=== PATIENT | male | born 1960 | race Caucasian/White ===

== ENCOUNTER → 2016-10-02 | Outpatient (CLI) | payer OTHER ==
[~2016-10-02] MED LIST: ASPI-482 PO; BUPIVACAINE MPF 0.25% 10 ML VIAL. ONE; CARV12.52 PO; CARV40CP PO; CHOL2000 PO; DESV50TA PO; ZOLP12.52 PO; ZOLP12.54 PO; methylPREDNISolone ACETATE 40 MG/ML VIAL. ONE
--- NOTE | 2016-10-03 13:20 | PAIN ---
DATE OF SERVICE: 10/02/2016 PROGRESS NOTE DIAGNOSES: 1. Lumbar spondylosis with lumbar herniated disk and lumbar radiculopathy. 2. Myofascial pain. HISTORY OF PRESENT ILLNESS: The patient is a 56-year-old male who returns for followup status post previous lumbar facet joint injections as well as transforaminal injections in the past. The patient has done well with these, was doing fairly well with his low back pain; however, he was moving some furniture over the past few days and it has increased the pain in his back significantly, more on the right than the left, but present bilaterally without any radicular pain in the lower extremities currently, but in the low back itself, which is much more significant than it was. The patient reports he was lifting some couches and moving things around his home some work done on the floors and tweaked his back and it has been very significantly painful. We tried some prescription strength Motrin without significant improvement as we called this and informed the other day and he presents today with still significant pain in the low back, again right greater than left with aching and sharp, alternating pain. This is rated an 8 on a scale of 10, worse with motion, standing, walking, sitting for prolonged periods, riding the car, bending forward even with lying down. It has awaken him from sleep as well for the last few days. The patient reports no new motor or sensory deficits; however, no new bowel or bladder incontinence or other complaints. The patient's old chart was reviewed as his current medication regimen and updated. Current review of systems updated today as well. PHYSICAL EXAMINATION: VITAL SIGNS: The patient's blood pressure is 135/95, pulse 93, respirations 18, temperature 97.5 degrees Fahrenheit. GENERAL: The patient is awake, alert, oriented, appropriate, very pleasant demeanor. HEENT: Shows normocephalic, atraumatic. Extraocular movements are intact and symmetrical. Oral cavity shows mucous membranes are moist and pink. Dentition is intact. NECK: Shows anterior throat supple without palpable lymphadenopathy noted. Swallow reflex is symmetrical. Neck shows full rotation and motion of the cervical spine without difficulty or tenderness. CHEST: Shows normal on inspection. Breath sounds are clear to auscultation bilaterally. HEART: Shows S1 and S2 clear. No murmurs auscultated. ABDOMEN: Shows soft, nontender, nondistended. No palpable organomegaly is noted. No rebound or guarding demonstrated. BACK: The patient's back shows spine grossly in midline. Lumbar paraspinous musculature shows some moderate tenderness with palpation in the bilateral paraspinous musculature, right and left, mostly in the middle and inferior aspect, much more significantly tender on the right side than the left in the paraspinous distribution with very firm rope-like musculature, very tender, very tight and firm with rope-like consistency without specific radiation, but consistent with trigger point musculature. Again, this is present bilaterally from about the L3 level to the L5-S1 level bilaterally. Some slight tenderness over the posterosuperior iliac spines bilaterally, but no tenderness above the upper lumbar paraspinous muscles or into the lower thoracic distribution. The patient shows good rotation and motion of the lumbar spine, both laterally as well as extension and flexion with some minor pain with extension, but not with flexion. EXTREMITIES: Lower extremities show deep tendon reflexes 2+ in the patellar and tendo calcaneus tendons are 1+. Motor exam is strong with 5/5 dorsiflexion, extension and equal. PLAN: Options were discussed with the patient. We will proceed with trigger point injections of the bilateral lumbar paraspinous musculature in the middle and lower distribution. Risks were again discussed including, but not limited to bleeding, infection, possibility of intravascular injection sequelae, spread of local anesthetic and numbness, side effects of steroid medication and poor results regarding pain control. The patient understands and wished to proceed. The patient will return to clinic in approximately 2 weeks or as necessary. He was given refill prescription for hydrocodone 5 mg, number dispensed 60. DIAGNOSES: 1. Myofascial pain. 2. Lumbar spondylosis with lumbar herniated disk and radiculopathy. PROCEDURE: Trigger point injections, bilateral lumbar paraspinous musculature with sterile prep and drape utilized and using local anesthetic. MEDICATIONS INJECTED: 40 mg total of Depo-Medrol plus 0.25% bupivacaine, 8 mL total with negative aspiration at each level. CONDITION AT DISCHARGE: Stable. The patient tolerated the procedure well, had no complications. MERCY MARTINEZ MD DR: DOMI/mary JOB#: [id number] / [id number]
== END ==
LOC: PNCL 14:40
PROVIDERS: ATTEND Anesthesiology
DX: M51.16 Intervertebral disc disorders with radiculopathy, lumbar region (principal); M47.26 Other spondylosis with radiculopathy, lumbar region
CPT/HCPCS: 20553; J1030; J3490

== ENCOUNTER → 2016-11-08 | Outpatient (CLI) | payer OTHER ==
[~2016-11-08] MED LIST changes: -BUPIVACAINE MPF 0.25% 10 ML VIAL. ONE; -methylPREDNISolone ACETATE 40 MG/ML VIAL. ONE
[2016-11-08 07:29] LABS: BASO % 0 % (0-3); EOS % 1 % (0-3); HEMOGLOBIN 14.3 g/dL (13.0-17.5); LYMPH # 3.6 x10^3/uL (1.0-4.8); LYMPH % 44 % (24-48); MEAN CORPUSCULAR HEMOGLOBIN 30 pg (25-35); MEAN CORPUSCULAR HGB CONC 34 g/dL (31-37); MEAN CORPUSCULAR VOLUME 88 fL (79-100); MONO % 8 % (0-9); NEUT % 47 % (31-73); PLATELET COUNT 170 x10^3/uL (140-400); RED BLOOD COUNT 4.78 x10^6/uL (4.30-5.70); RED CELL DISTRIBUTION WIDTH 13.7 % (11.5-14.5); WHITE BLOOD COUNT 8.2 x10^3/uL (4.0-11.0)
[2016-11-08 07:43] LABS: ALBUMIN 3.9 g/dL (3.4-5.0); ALBUMIN/GLOBULIN RATIO 1.1 (1.0-1.7); CALCIUM 8.9 mg/dL (8.5-10.1); GFR 76.7; TOTAL BILIRUBIN 0.8 mg/dL (0.2-1.0); TOTAL PROTEIN 7.3 g/dL (6.4-8.2)
[2016-11-08 07:45] LABS: CHOLESTEROL/HDL RATIO 4.4
[2016-11-08 11:26] LABS: PROSTATE SPECIFIC AG SCREEN 0.5 ng/mL (0.0-4.0)
== END | disposition home or self-care (01) ==
LOC: LAB 06:47
PROVIDERS: ATTEND Internal Medicine
DX: I10 Essential (primary) hypertension (principal); F32.9 Major depressive disorder, single episode, unspecified
CPT/HCPCS: 36415; 80053; 80061; 82607; 84443; 85027; G0103

== ENCOUNTER → 2017-03-03 | Outpatient (CLI) | payer OTHER ==
[~2017-03-03] MED LIST changes: +HYDR-2758 PO; +IBUP-1027 PO; +VORT5TAB PO
--- NOTE | 2017-03-04 03:07 | PAIN ---
DATE OF SERVICE: 03/03/2017 DIAGNOSES: 1. Cervical radiculopathy with cervical degenerative disk disease. 2. Lumbar spondylosis with lumbar herniated disk and radiculopathy. HISTORY OF PRESENT ILLNESS: The patient is a 57-year-old male who returns for followup status post trigger point injections as well as transforaminal injections in the past and lumbar facet injections. The patient reports that he has been doing fairly well with his low back; however, his chief complaint today is neck and right upper extremity pain. He has had significant pain for several years, but has always been on and off. He was told he had a disk bulge at the C5-C6 level about 20 years ago, but again the pain has always gone away after he rested for a day or so, but at this time, is not going away, has been present for about a month and is radiating from the base of the shoulder into the right arm mostly in the posterior aspect of the triceps into the medial aspect of the forearm into the fifth finger with aching, dull, radiating pain that is sharp and stinging, worse with activity, worse with putting all his weight on his right side, exacerbated with certain positions with his neck and shoulders as well. The patient reports anywhere from a 9 to a 4 on a scale of 10 and is currently a 4 today. The patient reports no new motor or sensory deficits, not been dropping items or have any weakness in upper extremities and no symptoms on the left side. PHYSICAL EXAMINATION: VITAL SIGNS: Today, blood pressure is 124/74, pulse 83, respirations 18, temperature 97.5 degrees Fahrenheit. Height is 70 inches, weighs 229 pounds. GENERAL: The patient is awake, alert, oriented, appropriate, very pleasant demeanor. HEENT: Head shows normocephalic, atraumatic. Extraocular movements are intact and symmetrical. Oral cavity, mucous membranes are moist and pink. Dentition is intact. NECK: Shows anterior throat supple without palpable lymphadenopathy noted. Swallow reflex is symmetrical. CHEST: Shows normal on inspection. Breath sounds are clear to auscultation bilaterally. HEART: Shows S1 and S2 clear. ABDOMEN: Soft, nontender, nondistended. No palpable organomegaly is noted. No rebound or guarding demonstrated. BACK: Shows spine grossly in the midline. Neck shows full rotational motion of cervical spine, both laterally as well as extension and flexion without difficulty. CHEST: Shows breath sounds clear to auscultation bilaterally. Posterior cervical musculature shows some very mild tenderness to palpation along with deep palpation in the inferior aspect of the cervical paraspinous musculature as well as the trapezius musculature on the right, but again only diffusely without radiation. Upper extremities show deep tendon reflexes 2+ in the biceps and triceps tendons. Motor exam is strong with packing checker strength rated at 5/5 as is biceps and triceps flexion with some minor pain reported in the posterior trapezius and the posterior deltoid on the right side as well as the posterior and triceps region of the upper arm and worse actually after motor function, but without any loss of strength on resistance with bicep and tricep flexion bilaterally. Peripheral pulses are 2+ radial distribution. No peripheral edema is noted. No clubbing, no cyanosis. Options were discussed with the patient and the patient's old chart was reviewed as his current medication regimen and updated. Current review of systems updated today as well. PLAN: We will follow ____ conservative course at this time. We will try Medrol Dosepak, also the patient was given hydrocodone 5 mg with instructions and side effects to be aware of with each of medications. If not significantly improved within 1 week, the patient will contact the office and we will order MRI scan of the cervical spine at that time. We will try this first and if not significantly improved, we will move on with MRI. MERCY MARTINEZ MD DR: DOMI/mary JOB#: [id number] / [id number]
== END | disposition home or self-care (01) ==
LOC: PNCL 12:05
PROVIDERS: ATTEND Anesthesiology
DX: M50.10 Cervical disc disorder with radiculopathy, unspecified cervical region (principal); M47.896 Other spondylosis, lumbar region; M51.16 Intervertebral disc disorders with radiculopathy, lumbar region
CPT/HCPCS: 99212

== ENCOUNTER → 2017-03-11 | Outpatient (CLI) | payer OTHER ==
[~2017-03-11] MED LIST changes: +IOHEXOL 180 MG/ML 10 ML VIAL. ONE; +methylPREDNISolone ACETATE 40 MG/ML VIAL. ONE; +methylPREDNISolone ACETATE 80 MG/ML VIAL. ONE
--- NOTE | 2017-03-12 05:27 | PN ---
DATE: 03/11/2017 PROGRESS NOTE FOR PAIN CLINIC: DIAGNOSES: 1. Lumbar spondylosis with lumbar herniated disk with lumbar radiculopathy. 2. Myofascial pain. 3. Cervical radiculopathy with cervical degenerative disk disease. HISTORY OF PRESENT ILLNESS: The patient is a 57-year-old male who returns for followup status post evaluation and Medrol Dosepak, which helped by about 20% overall about 50% initially and then decreasing, ____ was taking it. The patient reports there is still significant pain in the right upper extremity, mostly ____ base of the neck as well as some tingling that intermittent in the arm and hand, worse with driving, using his right upper extremity with any repetitive motions such as riding or carrying items, reaching over his head. The patient reports the pain is worsened 10 on a scale of 10 and least as a 5. The patient reports it is dull and shooting and radiating into the right arm as noted, especially into the fourth and fifth fingers and medial aspect of the arm and posterior deltoid on the right side. The patient reports no new motor or sensory deficits or other complaints. PHYSICAL EXAMINATION: VITAL SIGNS: The patient's blood pressure 129/96, pulse 96, respirations 18, temperature 98.1 degrees Fahrenheit. Height 70 inches, weighs 225 pounds. GENERAL: The patient is awake, alert, oriented, appropriate, very pleasant demeanor. HEENT: Head shows normocephalic, atraumatic. Extraocular movements are intact and symmetrical. Oral cavity shows mucous membranes moist and pink. Dentition is intact. NECK: Shows anterior throat supple without palpable lymphadenopathy noted. Swallow reflex is symmetrical. CHEST: Shows normal on inspection. Breath sounds clear to auscultation bilaterally. HEART: Shows S1 and S2 clear. No murmurs auscultated. ABDOMEN: Soft, nontender, nondistended. No palpable organomegaly is noted. No rebound or guarding demonstrated. BACK: Shows spine grossly midline. Cervical paraspinous musculature is symmetrical with inspection and palpation shows some moderate tenderness bilaterally with palpation, but only diffusely without radiation. EXTREMITIES: Upper extremities show deep tendon reflexes at 2+ in the biceps and triceps tendons. Motor exam is strong with devulcanizer loader strength rated at 5/5 as is biceps and triceps flexion. Options were discussed with the patient and the patient's old chart was reviewed as his current medication regimen updated. Current review of systems updated today as well. We will proceed with a cervical epidural steroid injection today with fluoroscopic guidance. Risks were again discussed including, but not limited to bleeding, infection, possibility of epidural hematoma and subsequent neurologic compromise, dural puncture, headaches, spinal cord and/or nerve damage, side effects of steroid medication and poor results regarding pain control. The patient understands and wishes to proceed. The patient will return to clinic in approximately 2 weeks for followup. He was counseled as to return appointment, activity level and side effects to be aware of. DIAGNOSIS: Cervical radiculopathy with cervical degenerative disk disease. PROCEDURE: Cervical epidural steroid injection in translaminar approach at C6-C7 level using C-arm fluoroscopic guidance under sterile prep and drape and local anesthetic. MEDICATION INJECTED: A total of 120 mg Depo-Medrol plus 5 mL of preservative-free normal saline and 2 mL of Isovue for contrast. CONDITION AT DISCHARGE: Stable. The patient tolerated the procedure well, had no complications. MERCY MARTINEZ MD DR: DOMI/mary JOB#: [id number] / [id number]
== END | disposition home or self-care (01) ==
LOC: PNCL 13:58
PROVIDERS: ATTEND Anesthesiology
DX: M50.123 Cervical disc disorder at C6-C7 level with radiculopathy (principal); M51.16 Intervertebral disc disorders with radiculopathy, lumbar region; M47.26 Other spondylosis with radiculopathy, lumbar region; Z88.2 Allergy status to sulfonamides
CPT/HCPCS: 62321; J1030; J1040

== ENCOUNTER → 2017-03-28 | Outpatient (CLI) | payer OTHER ==
[~2017-03-28] MED LIST changes: -IOHEXOL 180 MG/ML 10 ML VIAL. ONE; -methylPREDNISolone ACETATE 40 MG/ML VIAL. ONE; -methylPREDNISolone ACETATE 80 MG/ML VIAL. ONE
--- NOTE | 2017-03-28 14:33 | RAD ---
EXAM: MRI CERVICAL SPINE WITHOUT CONTRAST. HISTORY: Neck pain and right upper extremity radiculopathy. TECHNIQUE: Magnetic resonance images of the cervical spine were obtained without contrast. COMPARISON: None. 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 There is mild lower cervical levocurvature. No fractures are identified. Degenerative disc disease is moderate from C4 through C7 and mild elsewhere. There is mild osteoarthritis at C1-2. There is no abnormal cord signal. There are multiple small lacunar infarcts within the catrina. At C2-3, there is no stenosis. At C3-4, there is a small posterior disc bulge. Uncovertebral osteoarthritis is mild bilaterally. There is no stenosis. At C4-5, there is a small posterior disc-osteophyte complex. Uncovertebral osteoarthritis is moderate bilaterally. Neural foraminal stenosis is mild bilaterally. At C5-6, there is a moderate posterior disc-osteophyte complex. Uncovertebral osteoarthritis is moderate to severe on the left and moderate on the right. Central canal stenosis is mild to moderate with abutment of the anterior cord. Neural foraminal stenosis is moderate on the left and mild on the right. At C6-7, there is a moderate posterior disc-osteophyte complex. Uncovertebral osteoarthritis is moderate to severe on the right greater than left. Neural foraminal stenosis is moderate on the right and mild on the left. Central canal stenosis is mild. At C7-T1, uncovertebral osteoarthritis is moderate to severe bilaterally. Neural foraminal stenosis is moderate bilaterally. It is also moderate at T1 to on the left greater than right. IMPRESSION: 1. 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 2. Central canal stenosis is moderate at C5-6 and mild at C6-7. 3. 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 Electronically signed by: Isabel Jama MD (03/28/2017 2:30 PM) [id number]
--- NOTE | 2017-03-28 14:40 | RAD ---
EXAM: MRI LUMBAR SPINE WITHOUT CONTRAST. HISTORY: Low back pain with right lower extremity radiculopathy. TECHNIQUE: Magnetic resonance images of the lumbar spine were obtained without contrast. COMPARISON: None. FINDINGS: There is a mild dextrocurvature. There is slight retrolisthesis at L4-5. No fractures are identified. Degenerative disc disease is mild from L2 through L5. The conus is at L1 and appears normal. At L2-3, there is a small posterior disc bulge. There is no stenosis. At L3-4, there is a moderate posterior disc bulge. There is mild abutment of the right L4 nerve root in the lateral recess. At L4-5, there is a moderate posterior disc bulge. There is a small superimposed central and right paracentral protrusion. The right lateral recess is moderately narrowed with mass effect on the right L5 nerve root. Neural foraminal narrowing is mild on the right greater than left. At L5-S1, there is a small posterior disc bulge. There is no stenosis. IMPRESSION: 1. L4-5, a small central and right paracentral protrusion there is a right lateral recess moderately with mass effect on the right L5 nerve root. 2. There is mild abutment of the right L4 nerve root in the lateral recess at L3-4. 3. Mild degenerative disc disease from L2 through L5. Electronically signed by: Isabel Jama MD (03/28/2017 2:37 PM) [id number]
== END | disposition home or self-care (01) ==
LOC: MRI 12:54
PROVIDERS: ATTEND Anesthesiology
DX: M51.36 Other intervertebral disc degeneration, lumbar region (principal); M48.02 Spinal stenosis, cervical region; M50.30 Other cervical disc degeneration, unspecified cervical region; Z88.2 Allergy status to sulfonamides
CPT/HCPCS: 72141; 72148

== ENCOUNTER → 2017-04-01 | Outpatient (CLI) | payer OTHER ==
[~2017-04-01] MED LIST changes: +BUPIVACAINE MPF 0.25% 10 ML VIAL. ONE; +IOHEXOL 180 MG/ML 10 ML VIAL. ONE; +methylPREDNISolone ACETATE 40 MG/ML VIAL. ONE; +methylPREDNISolone ACETATE 80 MG/ML VIAL. ONE
== END | disposition home or self-care (01) ==
LOC: PNCL 08:01
PROVIDERS: ATTEND Anesthesiology
DX: M51.16 Intervertebral disc disorders with radiculopathy, lumbar region (principal); M47.26 Other spondylosis with radiculopathy, lumbar region; Z88.2 Allergy status to sulfonamides
CPT/HCPCS: 64493; 64494; J1030; J1040; J3490

== ENCOUNTER → 2017-04-29 | Outpatient (CLI) | payer OTHER ==
[~2017-04-29] MED LIST changes: -BUPIVACAINE MPF 0.25% 10 ML VIAL. ONE
--- NOTE | 2017-04-29 17:18 | PAIN ---
DATE OF SERVICE: 04/29/2017 PROGRESS NOTE FOR PAIN CLINIC DIAGNOSES: 1. Lumbar spondylosis with lumbar herniated disk and lumbar radiculopathy. 2. Cervical radiculopathy with cervical degenerative disk disease. 3. Myofascial pain. HISTORY OF PRESENT ILLNESS: The patient is a 57-year-old male who returns for followup status post lumbar epidural steroid injections as well as cervical epidural steroid injection x 1 on 03/11 and lumbar facet injections on 04/01/2017. The patient reports his back is doing much better. He is almost completely pain free with this, but the pain in his neck and right shoulder and upper extremity is beginning to return now over the past few weeks. The patient reports it is increasing, it can be as high as a 10 on scale of 10 and is currently a 4 on a scale of 10, his average is an 8 on a scale of 10, radiating in the base of the neck, right shoulder posteriorly into the right posterior arm causing some weakness and fatigability. The patient reports it does not awake him from sleep at night; however, he is sleeping well unless he lays on his right side it does not bother him too much, worse with increased activity, even driving a car with his right hand, repetitive motions, reaching over his shoulder, especially when putting on his shirt, getting dressed ____ the patient reports a sharp, shooting and burning, on and off in intensity, but becoming more persistent over the past few weeks. The patient reports no new motor or sensory deficits, no new bowel or bladder incontinence or other complaints. PHYSICAL EXAMINATION: VITAL SIGNS: The patient's blood pressure is 111/64, pulse 79, respirations 18, temperature is 98.1 degrees Fahrenheit. Height is 70 inches, weight is 220 pounds. GENERAL: The patient is awake, alert, oriented, appropriate, very pleasant demeanor. HEENT: Head shows normocephalic, atraumatic. Extraocular movements are intact, symmetrical. Oral cavity, mucous membranes are moist and pink. Dentition is intact. NECK: Shows anterior throat supple without palpable lymphadenopathy noted. Swallow reflex is symmetrical. CHEST: Shows normal on inspection. Breath sounds are clear to auscultation bilaterally. HEART: Shows S1 and S2 clear. ABDOMEN: Soft, nontender, nondistended. BACK: Shows spine grossly in the midline. Lumbar paraspinous muscle shows some only very mild tenderness with deep palpation in the lower lumbar distribution, more on the right than the left, but without radiation, good rotational motion both laterally as well as extension and flexion. Cervical paraspinous muscle shows some moderate tenderness with palpation, but only diffusely in the inferior aspect of the cervical paraspinous muscles, again worse on the right than the left. Also, some tenderness in the right superior medial and lateral trapezius, but without radiation. EXTREMITIES: Upper extremities show deep tendon reflexes at 2+ in the biceps and triceps tendons. Motor exam is strong with steel shot header operator strength rated at 5/5 as is biceps and triceps flexion. Peripheral pulses are 2+ radial distribution. Options were discussed with the patient. We will proceed with a cervical epidural steroid injection, today is the second in this series with fluoroscopic guidance. Risks were again discussed including, but not limited to bleeding, infection, possibility of epidural hematoma, subsequent neurologic compromise, dural puncture, headaches, spinal cord and/or nerve damage, side effects of steroid medication and poor results regarding pain control. The patient understands and wishes to proceed. The patient will return to clinic in approximately 2 weeks for followup. He was counseled to return appointment, activity level, and side effects to be aware of. DIAGNOSIS: Cervical radiculopathy with cervical degenerative disk disease. PROCEDURE: Cervical epidural steroid injection in translaminar approach at C6-C7 level using C-arm fluoroscopic guidance under sterile prep and drape using local anesthetic. Medication injected is a total of 120 mg of Depo-Medrol plus 5 mL preservative-free normal saline and 2 mL of Isovue for contrast. CONDITION AT DISCHARGE: Stable. The patient tolerated procedure well, had no complications. MERCY MARTINEZ MD DR: DOMI/mary JOB#: [id number] / [id number]
== END | disposition home or self-care (01) ==
LOC: PNCL 11:01
PROVIDERS: ATTEND Anesthesiology
DX: M50.123 Cervical disc disorder at C6-C7 level with radiculopathy (principal); M51.16 Intervertebral disc disorders with radiculopathy, lumbar region; M47.26 Other spondylosis with radiculopathy, lumbar region
CPT/HCPCS: 62321; J1030; J1040

== ENCOUNTER → 2017-05-13 | Outpatient (CLI) | payer OTHER ==
--- NOTE | 2017-05-13 18:24 | PAIN ---
DATE OF SERVICE: 05/13/2017 DIAGNOSES: 1. Lumbar spondylosis with lumbar herniated disk and lumbar radiculopathy. 2. Cervical radiculopathy with cervical degenerative disk disease. 3. Myofascial pain. HISTORY OF PRESENT ILLNESS: The patient is a 57-year-old male who returns for followup status post cervical epidural steroid injection x 2, last seen 04/29/2017. The patient did very well with decreasing pain about 6 hours after the procedure, lasting for about 2 weeks. The pain is in his neck and right upper extremity. The patient reports it is a 10 on a scale of 10 at its worst, it is returning now 6 on a scale of 10, ____ currently is 7 on a scale of 10 which is the average. The patient reports it has been hurting for about 3 or 4 days, increasing with activity, raising his arm over his head on the right side. It does not awaken him from sleep at night, but does hurts and he had to reposition few times. Sometimes it is hard to get to sleep till he finds a right position. The patient reports it is more painful, more now in the shoulder than in the arm aching, sharp, dull and shooting pain. No new motor or sensory deficits or other complaints. PHYSICAL EXAMINATION: VITAL SIGNS: Shows blood pressure 121/73, pulse 91, respirations 18, temperature is 97.9 degrees Fahrenheit. Height is 70 inches, weight is 217 pounds. GENERAL: The patient is awake, alert, oriented, appropriate, very pleasant demeanor. HEENT: Shows normocephalic, atraumatic. Extraocular movements are intact and symmetrical. Oral cavity shows mucous membranes moist and pink. Dentition is intact. NECK: Shows anterior throat supple without palpable lymphadenopathy noted. Swallow reflex is symmetrical. CHEST: Shows normal on inspection. Breath sounds clear to auscultation bilaterally. HEART: Shows S1 and S2 clear. No murmurs auscultated. ABDOMEN: Soft, nontender, nondistended. BACK: Shows spine grossly midline. Cervical paraspinous muscle shows some moderate tenderness with palpation, but symmetrical in the musculature itself only with palpation, more in the inferior aspect of the cervical paraspinous muscles and superior medial trapezius, essentially equal but tender bilaterally. EXTREMITIES: Upper extremities showed deep tendon reflexes at 2+ in the biceps and triceps tendons. Motor exam is strong with certified activities director strength rated at 5/5, as is bicep and tricep flexion and equal. Options were discussed with the patient. The patient's old chart was reviewed as his current medication regimen updated. Current review of systems updated today as well. We will proceed with a third in the series of cervical epidural steroid injection using C-arm fluoroscopic guidance under sterile prep and drape. Risks were again discussed including, but not limited to bleeding, infection, possibility of epidural hematoma and subsequent neurologic compromise, dural puncture, headaches, spinal cord and/or nerve damage, side effects of steroid medication and poor results regarding pain control. The patient understands and wishes to proceed. The patient will return to clinic in approximately 2 weeks for followup. He was counseled on return appointment, activity level and side effects to be aware of. DIAGNOSIS: Cervical radiculopathy with cervical degenerative disk disease. PROCEDURE: Cervical epidural steroid injection using C-arm fluoroscopic guidance and sterile prep and drape using local anesthetic. MEDICATION INJECTED: Total of 120 mg Depo-Medrol plus 5 mL of preservative-free normal saline and 2 mL of Isovue for contrast. CONDITION AT DISCHARGE: Stable. The patient tolerated procedure well, had no complications. MERCY MARTINEZ MD DR: DOMI/mary JOB#: [id number] / [id number]
== END | disposition home or self-care (01) ==
LOC: PNCL 15:10
PROVIDERS: ATTEND Anesthesiology
DX: M50.10 Cervical disc disorder with radiculopathy, unspecified cervical region (principal); M51.16 Intervertebral disc disorders with radiculopathy, lumbar region; M47.26 Other spondylosis with radiculopathy, lumbar region; Z88.2 Allergy status to sulfonamides
CPT/HCPCS: 62321; J1030; J1040

== ENCOUNTER → 2017-05-27 | Outpatient (CLI) | payer OTHER ==
[~2017-05-27] MED LIST changes: +VORT20TA PO
--- NOTE | 2017-05-27 21:03 | PAIN ---
DATE OF SERVICE: 05/27/2017 DIAGNOSES: 1. Cervical radiculopathy with cervical degenerative disk disease. 2. Lumbar radiculopathy with lumbar herniated disk and spondylosis. HISTORY OF PRESENT ILLNESS: The patient is a 57-year-old male who returns for followup status post cervical epidural steroid injection, last seen on 05/13/2007. The patient did very well with this, reports around 80% to 85% improvement, but the pain is now returning in the base of the neck and shoulder and to the right upper extremity. The patient reports it is a 9 on a scale of 10, the worst is 7, on average is 5, currently has a dull, shooting pain as burning and aching into the right upper extremity, shoulder, arm as well as some pain across the low back, but much improved. The patient had been taking Tylenol No. 3 with very good improvement. The patient reports it gets in through his working day, also helps his low back pain, keeps well. The patient reports it does awaken her from sleep occasionally but he can reposition if he is lying on his right arm to where he is comfortable and able to get back to sleep. The patient reports no new motor or sensory deficits, no new bowel or bladder incontinence or other complaints. PHYSICAL EXAMINATION: VITAL SIGNS: The patient's blood pressure is 124/86, pulse 96, respirations are 16, temperature is 98.0 degrees Fahrenheit. Height is 70 inches, weight is 216 pounds. GENERAL: The patient is awake, alert, oriented, appropriate, very pleasant demeanor. HEENT: Head shows normocephalic, atraumatic. Extraocular movements are intact and symmetrical. Oral cavity shows mucous membranes moist and pink. Dentition is intact. NECK: Shows anterior throat supple without palpable lymphadenopathy noted. Swallow reflex is symmetrical. CHEST: Shows normal on inspection. Breath sounds clear to auscultation bilaterally. HEART: Shows S1 and S2 clear. No murmurs auscultated. ABDOMEN: Soft, nontender, nondistended. BACK: Shows spine grossly midline. Cervical paraspinous musculature shows some mild tenderness with palpation only in the inferior aspect of the cervical paraspinous muscles, also in superior medial trapezius, more on the right than the left, without radiation. The patient has full rotational motion of cervical spine, both laterally as well as extension and flexion without difficulty. EXTREMITIES: Upper extremities show deep tendon reflexes 2+ in the biceps and triceps tendons. Motor exam is strong with disability examiner strength rated 5/5 at his biceps and triceps flexion. Options were discussed with the patient and the patient's old chart was reviewed as his current medication regimen updated. Current review of systems updated today as well. We will proceed with a cervical epidural steroid injection as before in this series total with fluoroscopic guidance. Risks were again discussed including, but not limited to bleeding, infection, possibility of epidural hematoma, subsequent neurologic compromise, dural puncture, headaches, spinal cord and/or nerve damage, side effects of steroid medication and poor results regarding pain control. The patient understands and wishes to proceed. The patient will return to clinic in approximately 2 weeks for followup, was counseled on return appointment, activity level, and side effects to be aware of. DIAGNOSIS: Cervical radiculopathy with cervical degenerative disk disease. PROCEDURE: Cervical epidural steroid injection in translaminar approach at the C6-C7 level using C-arm fluoroscopic guidance under sterile prep and drape using local anesthetic. Medication injected is 120 mg Depo-Medrol plus 5 mL preservative-free normal saline 2mL Isovue for contrast. CONDITION AT DISCHARGE: Stable. The patient tolerated procedure well, had no complications. MERCY MARTINEZ MD DR: DOMI/mary JOB#: [id number] / [id number]
== END | disposition home or self-care (01) ==
LOC: PNCL 13:00
PROVIDERS: ATTEND Anesthesiology
DX: M50.123 Cervical disc disorder at C6-C7 level with radiculopathy (principal); Z88.2 Allergy status to sulfonamides
CPT/HCPCS: 62321; J1030; J1040

== ENCOUNTER → 2017-07-28 | Outpatient (CLI) | payer OTHER ==
[~2017-07-28] MED LIST changes: +ACET-704 PO; +BUPIVACAINE MPF 0.25% 10 ML VIAL. ONE; +BUSP5TAB PO
--- NOTE | 2017-07-28 17:56 | PAIN ---
DATE OF SERVICE: 07/28/2017 DIAGNOSES: 1. Lumbar and lumbosacral spondylosis. 2. Herniated lumbar disk with lumbar radiculopathy. 3. Cervical radiculopathy with cervical degenerative disk disease. SUBJECTIVE: A 57-year-old male who returns for followup status post cervical epidural steroid injections and lumbar facet injections, most recently seen 05/27/2017. The patient did very well with cervical injections, reports his neck is doing much better, it is near 100% improved. His main complaint today is his low back pain, which has returned over the past 3 to 4 weeks without any specific injury or action that he is aware of. No difference in activity level for lifting or any type of strain of low back. The patient reports it is much worse with standing and walking, also sitting for prolonged periods, rates a 9 on a scale of 10 at its worst, 7 on average, 5 at its least and is 7 today. The patient reports an aching, dull, constant, can be radiating occasionally into the lower extremities, mostly staying in the low back itself. The patient reports it does not bother him when he is lying down. He is sleeping well through the night without awakening him and also better with sitting, but only for about 15-20 minutes. After that the pain begins to slowly buildup and again it is much worse with standing and walking. The patient reports no new motor or sensory deficits, no new bowel or bladder incontinence or other complaints. PHYSICAL EXAMINATION: VITAL SIGNS: The patient's blood pressure 129/87, pulse 79, respirations 18, temperature 98.2 degrees Fahrenheit. Height is 70 inches, weight is 217 pounds. GENERAL: The patient is awake, alert, oriented, appropriate, very pleasant demeanor. HEENT: Shows normocephalic, atraumatic. Extraocular movements are intact and symmetrical. Oral cavity: Mucous membranes moist and pink. Dentition intact. NECK: Shows anterior throat supple without palpable lymphadenopathy noted. Swallow reflex is symmetrical. CHEST: Shows normal on inspection. Breath sounds are clear to auscultation bilaterally. HEART: Shows S1 and S2 clear. No murmurs auscultated. ABDOMEN: Soft, nontender, nondistended. No palpable organomegaly noted. No rebound or guarding demonstrated. BACK: Shows spine grossly midline. Normal appearing thoracic kyphosis and lumbar lordotic curvature. No previous bruises, lesions, rashes or scars are noted. Lumbar paraspinous musculature shows symmetrical on inspection. With palpation shows some moderate tenderness in the middle and lower distribution of paraspinous muscles only diffusely, more in the lower distribution than upper with some minor tenderness over the posterior superior iliac spines, but not over the sacrum or sacroiliac regions. The patient shows good rotational motion with some minor tenderness with right lateral rotation past 10 degrees, also with extension past tenderness bilaterally in the low back, forward flexion is done at 45 degrees without significant pain reported. EXTREMITIES: The patient's lower extremities show deep tendon reflexes at 2+ in the patellar, 1+ tendo calcaneus tendons. Motor exam is strong with 5/5 dorsiflexion, extension, quadriceps and hamstring flexion. Peripheral pulses are 1+ posterior tibia. No peripheral edema is noted bilaterally. Options were discussed with the patient. The patient patient's old chart was reviewed as his current medication regimen updated. Current review of systems updated today as well. We will proceed with bilateral L4-L5 and L5-S1 facet joint injections with fluoroscopic guidance. Risks were again discussed including, but not limited to bleeding, infection, possibility of epidural hematoma, subsequent neurologic compromise, dural punctures, headaches, spinal cord and/or nerve damage, side effects of steroid medication and poor results regarding pain control. The patient understands and wishes to proceed. The patient will return to clinic in approximately 2 weeks for followup, was counseled on return appointment, activity level and side effects to be aware of. The patient also given refill prescription for Tylenol No. 3 with Codeine with instructions, side effects to be aware of discussed as well. DIAGNOSES: 1. Lumbar and lumbosacral spondylosis. 2. Lumbar herniated disk. 3. Myofascial pain. PROCEDURE: Bilateral L4-L5 and L5-S1 facet joint injections with C-arm fluoroscopic guidance under sterile prep and drape using local anesthetic. MEDICATION INJECTED: A total of 120 mg Depo-Medrol plus total of 4 mL of 0.25% bupivacaine and a total of 2 mL of Isovue for contrast. CONDITION AT DISCHARGE: Stable. The patient tolerated procedure well, had no complications. MERCY MARTINEZ MD DR: DOMI/mary JOB#: [id number] / [id number]
== END | disposition home or self-care (01) ==
LOC: PNCL 12:37
PROVIDERS: ATTEND Anesthesiology
DX: M51.16 Intervertebral disc disorders with radiculopathy, lumbar region (principal); M47.26 Other spondylosis with radiculopathy, lumbar region; M50.30 Other cervical disc degeneration, unspecified cervical region; Z88.2 Allergy status to sulfonamides
CPT/HCPCS: 64493; 64494; J1030; J1040; J3490

== ENCOUNTER → 2017-10-23 | Outpatient (CLI) | payer OTHER ==
[~2017-10-23] MED LIST changes: -ACET-704 PO; -ASPI-482 PO; +BUPIVACAINE MPF 0.25% 10 ML VIAL.; -BUPIVACAINE MPF 0.25% 10 ML VIAL. ONE; -BUSP5TAB PO; -CARV12.52 PO; -CARV40CP PO; -CHOL2000 PO; -DESV50TA PO; -HYDR-2758 PO; -IBUP-1027 PO; +IOHEXOL 180 MG/ML 10 ML VIAL.; -IOHEXOL 180 MG/ML 10 ML VIAL. ONE; -VORT20TA PO; -VORT5TAB PO; -ZOLP12.52 PO; -ZOLP12.54 PO; -methylPREDNISolone ACETATE 40 MG/ML VIAL. ONE; +methylPREDNISolone ACETATE 80 MG/ML VIAL.; -methylPREDNISolone ACETATE 80 MG/ML VIAL. ONE
== END ==
LOC: PNCL 11:56
DX: M46.1 Sacroiliitis, not elsewhere classified (principal); M50.10 Cervical disc disorder with radiculopathy, unspecified cervical region; M51.16 Intervertebral disc disorders with radiculopathy, lumbar region; Z88.2 Allergy status to sulfonamides
CPT/HCPCS: G0260; J1040; J3490; Q9965

== ENCOUNTER → 2018-07-09 | Outpatient (CLI) | payer OTHER ==
[~2018-07-09] MED LIST changes: +ACET-704 PO; +ASPI-482 PO; -BUPIVACAINE MPF 0.25% 10 ML VIAL.; +BUPIVACAINE MPF 0.25% 10 ML VIAL. ONE; +BUSP5TAB PO; +CARV12.52 PO; +CARV40CP PO; +CHOL2000 PO; +DESV50TA PO; +HYDR-2758 PO; +IBUP-1027 PO; -IOHEXOL 180 MG/ML 10 ML VIAL.; +IOHEXOL 180 MG/ML 10 ML VIAL. ONE; +LIDOCAINE 1% PF 2 ML VIAL. ONE; +VORT20TA PO; +VORT5TAB PO; +ZOLP12.52 PO; +ZOLP12.54 PO; +methylPREDNISolone ACETATE 40 MG/ML VIAL. ONE; -methylPREDNISolone ACETATE 80 MG/ML VIAL.; +methylPREDNISolone ACETATE 80 MG/ML VIAL. ONE
--- NOTE | 2018-07-09 23:37 | PAIN ---
DATE OF SERVICE: 07/09/2018 PROGRESS NOTE FOR PAIN CLINIC DIAGNOSES: 1. Lumbar and lumbosacral spondylosis. 2. Lumbar radiculopathy with lumbar herniated disk. 3. Cervical radiculopathy with cervical degenerative disk disease. HISTORY OF PRESENT ILLNESS: The patient is a 58-year-old male who returns for followup status post both bilateral lumbar facet injection as well as left sacroiliac joint injection and cervical epidural steroid injections, most recently seen in October of 2017. The patient did very well with the injections in the past, about 100% improvement with his facet joint injections, but the pain is returning now in the low back bilaterally, slightly worse on the right than the left but present bilaterally with some minor radiation into the posterior gluteus bilaterally but across the low back, worse with standing, walking, bending and flexing at the waist, especially extension with axial loading of the lumbar spine in the bilateral low back and worse again on the right than the left. The patient reports it is much worse in the morning when he is first up and around on his feet, especially when he is brushing his teeth he notices . The patient reports the pain is a 10 on a scale of 10 at its worst, 8 on average and is a 5 at its least. He reports it is a sharp and shooting, becoming more constant most of the time in the low back itself. The patient reports no new motor or sensory deficits and no new bowel or bladder incontinence or other complaints. The patient rates the pain is a 10 on a scale of 10 at its worst, 8 on average, 5 at its least and is a 5 today. PHYSICAL EXAMINATION: VITAL SIGNS: The patient's blood pressure is 133/81, pulse 79, respirations 18 and temperature 97.3 degrees Fahrenheit. Height is 70 inches and weight is 229 pounds. GENERAL: The patient is awake, alert, oriented, appropriate and very pleasant demeanor. HEENT: Head shows normocephalic and atraumatic. Extraocular movements are intact and symmetrical. Oral cavity: Mucous membranes are moist and pink. Dentition is intact. NECK: Shows anterior throat supple without palpable lymphadenopathy noted. Swallow reflex symmetrical. CHEST: Shows normal on inspection. Breath sounds clear to auscultation bilaterally. HEART: Shows S1 and S2 clear. No murmurs auscultated. ABDOMEN: Soft, nontender and nondistended. No palpable organomegaly is noted. No rebound or guarding demonstrated. BACK: Shows spine grossly in the midline, normal-appearing cervical lordotic curvature, thoracic kyphotic curvature and lumbar lordotic curvature. Lumbar paraspinous muscle shows symmetrical on inspection, on palpation shows some moderate tenderness in the low lumbar distribution bilaterally but only diffusely without radiation and without trigger points. No tenderness over the spinous processes over the sacrum or sacroiliac regions. The patient has good rotational motion of lumbar spine both laterally as well as extension and flexion with significant pain with extension greater than 10 degrees, again worse on the right than the left but present bilaterally. It is true with right and left lateral rotation at 10 degrees, much more severe on the right without radiation to lower extremities. EXTREMITIES: The patient's lower extremities show deep tendon reflexes 2+ in the patellar and 1+ tendo-calcaneus tendons. Motor exam is strong with 5/5 dorsiflexion, extension, quadriceps and hamstring flexion and equal. Peripheral pulses are 1+ posterior tibia. No peripheral edema is noted. Options were discussed with the patient. The patient's old chart was reviewed as well as his current medication regimen updated. Current review of systems is updated today as well. We will proceed with bilateral lumbar facet joint injection at the L4-L5 level and L5-S1 level. Risks were again discussed including, but not limited to bleeding, infection, possibility of epidural hematoma, subsequent neurologic compromise, dural puncture headaches, spinal cord and/or nerve damage, side effects of steroid medication and poor results regarding pain control. The patient understands and wished to proceed. The patient will return to the clinic in approximately 2 weeks for followup, was counseled as to return appointment, activity level and side effects to be aware of. DIAGNOSIS: Lumbar spondylosis and lumbosacral spondylosis. PROCEDURE: Bilateral L4-L5 and L5-S1 facet joint injection using C-arm fluoroscopic guidance under sterile prep and drape using local anesthetic. MEDICATION INJECTED: A total of 120 mg Depo-Medrol plus total of 4 mL 0.25% bupivacaine and total of 2 mL of Isovue for contrast. CONDITION AT DISCHARGE: Stable. The patient tolerated the procedure well and had no complications. MERCY MARTINEZ MD DR: DOMI/mary JOB#: [id number] / [id number]
== END | disposition home or self-care (01) ==
LOC: PNCL 10:45
PROVIDERS: ATTEND Anesthesiology
DX: M51.16 Intervertebral disc disorders with radiculopathy, lumbar region (principal); M47.817 Spondylosis without myelopathy or radiculopathy, lumbosacral region; M50.10 Cervical disc disorder with radiculopathy, unspecified cervical region; Z88.2 Allergy status to sulfonamides
CPT/HCPCS: 64493; 64494; J1030; J1040; J3490; Q9965

== ENCOUNTER → 2018-11-12 | Outpatient (CLI) | payer OTHER ==
[~2018-11-12] MED LIST changes: +CARV12.511 PO; -CARV12.52 PO; -HYDR-2758 PO; +HYDR-2761 PO; -LIDOCAINE 1% PF 2 ML VIAL. ONE
--- NOTE | 2018-11-12 20:20 | PAIN ---
DATE OF SERVICE: 11/12/2018 DIAGNOSES: 1. Cervical radiculopathy with cervical degenerative disk disease. 2. Lumbar radiculopathy with lumbar herniated disk and lumbar spondylosis. 3. Myofascial pain. 4. Left sacroiliitis. HISTORY OF PRESENT ILLNESS: The patient is a 58-year-old male who returns for followup status post bilateral facet joint injections, last performed on 07/09/2018. The patient did very well with these with near 100% improvement until the last few weeks. He was shoveling some snow about a week ago and pain began to return in the low back and the right side only, not on the left. The patient reports it is radiating into the posterior gluteus to some extent, but mostly just in the back itself, worse with walking, standing, and extension of the lumbar spine, especially axial loading and rearward extension of the lumbar spine, better with forward flexion, still significant pain with right and left lateral rotation on the right side only. The patient reports it is aching and sharp pain. It is radiating to an extent in the back itself, mostly located in the back. The patient reports it is a 9 on a scale of 10 at its worst, 8 on average, 5 at its least and is a 5 today. The patient reports no new motor or sensory deficits, no new bowel or bladder incontinence or other complaints. Otherwise, he is doing very well with increased distance walking, doing activities at work and at home, traveling with greater ease and comfort. PHYSICAL EXAMINATION: VITAL SIGNS: Today, the patient's blood pressure 128/100, pulse 80, respirations 18, temperature 97.7 degrees Fahrenheit. Height is 70 inches, weight is 211 pounds. GENERAL: The patient is awake, alert, oriented, appropriate, very pleasant demeanor. HEENT: Shows normocephalic, atraumatic. Extraocular movements are intact and symmetrical. Oral cavity: Mucous membranes moist and pink. Dentition intact. NECK: Shows anterior throat supple without palpable lymphadenopathy noted. Swallow reflex is symmetrical. CHEST: Shows normal on inspection. Breath sounds are clear to auscultation bilaterally. HEART: Shows S1, S2 clear. No murmurs auscultated. ABDOMEN: Soft, nontender, nondistended. No palpable organomegaly is noted. BACK: Shows spine grossly in the midline, slight flattening of lumbar lordotic curvature. Lumbar paraspinous muscle shows symmetrical on inspection. With palpation shows some [id number] tenderness in the right greater than left inferior aspect of the lumbar paraspinous musculature without radiation. No tenderness over the sacrum or sacroiliac regions on exam today. The patient has good rotational motion of lumbar spine with some moderate tenderness with right lateral rotation as well as with extension of the lumbar spine past 10 degrees, forward flexion at 45 degrees is nontender as is left lateral rotation, but with some minor pain on the right side with left lateral rotation, but only very minimal. EXTREMITIES: The patient's lower extremities show deep tendon reflexes 2+ in the patellar, 1+ tendo calcaneus tendons. Motor exam is strong with 5/5 dorsiflexion, extension, quadriceps and hamstring flexion and equal. Peripheral pulses are 1+ posterior tibia. No peripheral edema is noted. Options were discussed with the patient. The patient's old chart was reviewed as was his current medication regimen updated. Current review of systems is updated today as well. We will proceed with right-sided L4-L5 and L5-S1 facet joint injections using C-arm fluoroscopic guidance. Risks were again discussed including, but not limited to bleeding, infection, possibility of epidural hematoma, subsequent neurologic compromise, dural puncture, headaches, spinal cord and/or nerve damage, side effects of steroid medication and poor results regarding pain control. The patient understands and wished to proceed. The patient will return to the clinic in approximately 2 weeks for followup, was counseled on return appointment, activity level and side effects to be aware of. The patient also given refill prescription for Tylenol No. 3, 60 tablets with instructions and side effects to be aware of discussed. DIAGNOSIS: Right lumbar and lumbosacral spondylosis. PROCEDURES: Right L4-L5 and L5-S1 facet joint injections using C-arm fluoroscopic guidance under sterile prep and drape using local anesthetic. MEDICATION INJECTED: A total of 120 mg Depo-Medrol plus 2 mL of 0.25% bupivacaine and 1 mL of Isovue for contrast. CONDITION AT DISCHARGE: Stable. The patient tolerated the procedure well, had no complications. MERCY MARTINEZ MD DR: DOMI/mary JOB#: [id number] / [id number]
== END | disposition home or self-care (01) ==
LOC: PNCL 12:56
PROVIDERS: ATTEND Anesthesiology
DX: M47.817 Spondylosis without myelopathy or radiculopathy, lumbosacral region (principal); M51.16 Intervertebral disc disorders with radiculopathy, lumbar region; M50.10 Cervical disc disorder with radiculopathy, unspecified cervical region; M79.18 Myalgia, other site; M46.1 Sacroiliitis, not elsewhere classified; Z88.2 Allergy status to sulfonamides
CPT/HCPCS: 64493; 64494; J1030; J1040; J3490; Q9965; 64483

== ENCOUNTER → 2018-12-14 | Outpatient (CLI) | payer OTHER ==
[~2018-12-14] MED LIST changes: -methylPREDNISolone ACETATE 40 MG/ML VIAL. ONE
--- NOTE | 2018-12-14 12:24 | PAIN ---
DATE OF SERVICE: 12/14/2018 DIAGNOSES: 1. Lumbar radiculopathy with lumbar degenerative disk disease. 2. Lumbar spondylosis. 3. Lumbosacral spondylosis. HISTORY OF PRESENT ILLNESS: The patient is a 58-year-old male who returns for followup status post right L4-L5 and L5-S1 facet joint injections, last seen on 11/12/2018. The patient did very well, about 100% improvement for the first 2 weeks, then the pain returned in the low back and the right posterior hip. The patient reports there is now some radiation into the lower extremity as well, but very rarely. The patient reports he tripped and fell about 3 days ago in a parking lot, which seemed to exacerbate the pain even further, but the pain was returning even before that. The patient reports the pain now is 8 on a scale 10 at its worst, 4 at its least and is 7-8 on an average. The patient reports it is 7 today. The patient reports it is aching, sharp, radiating, becoming more constant in the low back, right hip, into the right posterior gluteus, worse with extension of the lumbar spine as well as right and left lateral rotations especially right lateral rotation, lateral rotation and extension with axial loading in the low back. The patient reports it awakens him from sleep, but only about every 6-7 hours. ____ increased walking, doing working activities, household activities and traveling with greater ease and comfort. The patient reports now the pain has returned; however, it is much worse with walking and standing, changing positions, standing from a sitting position; described as aching, sharp, radiating and becoming more constant. PHYSICAL EXAMINATION: VITAL SIGNS: The patient's blood pressure is 109/84, pulse 98, respirations 16, temperature 97.3 degrees Fahrenheit. Height is 70 inches, weight is 206 pounds. GENERAL: The patient is awake, alert, oriented, appropriate, very pleasant demeanor. HEENT: Head shows normocephalic, atraumatic. Extraocular movements are intact and symmetrical. Oral cavity: Mucous membranes moist and pink. Dentition is intact. NECK: Shows anterior throat supple without palpable lymphadenopathy noted. Swallow reflex is symmetrical. CHEST: Shows normal on inspection. Breath sounds clear to auscultation bilaterally. HEART: Shows S1, S2 clear. No murmurs auscultated. ABDOMEN: Soft, nontender, nondistended. No palpable organomegaly is noted. No rebound or guarding is demonstrated. BACK: Shows spine grossly in the midline. Normal-appearing thoracic kyphosis and lumbar lordotic curvature. Lumbar paraspinous muscle shows symmetrical on inspection, with palpation shows some moderate tenderness diffusely in the low lumbar distribution, but only diffusely without specific radiation. The patient shows good rotational motion of lumbar spine with moderate tenderness with right lateral rotation and significant tenderness with extension greater than 10 degrees and axial loading of the low back with significant pain on the right side. EXTREMITIES: Lower extremities show deep tendon reflexes 2+ in the patella, 1+ tendo calcaneus tendons. Motor exam is strong with 5/5 dorsiflexion, extension, quadriceps and hamstring flexion and symmetrical. Options were discussed with the patient. The patient's old chart was reviewed as was his current medication regimen updated. Current review of systems updated today as well. We will proceed with right-sided L4-L5 and L5-S1 facet joint injections using C-arm fluoroscopic guidance. Risks were again discussed including, but not limited to bleeding, infection, possibility of intravascular injection sequelae, spread of local anesthetic and numbness, side effects of steroid medications, exposure to fluoroscopy and poor results regarding pain control. The patient understands and wished to proceed. The patient to return to the clinic in approximately 2 weeks for followup, was counseled on return appointment, activity level, and side effects to be aware of. DIAGNOSIS: Lumbar and lumbosacral spondylosis. PROCEDURES: Right-sided L4-L5 and L5-S1 facet joint injection using C-arm fluoroscopic guidance under sterile prep and drape using local anesthetic. MEDICATION INJECTED: A total of 80 mg Depo-Medrol and total of 1 mL of Isovue for contrast and 2 mL of 0.25% bupivacaine after negative aspiration at each injection. CONDITION AT DISCHARGE: Stable. The patient tolerated procedure well, had no complications. MERCY MARTINEZ MD DR: DOMI/mary JOB#: [id number] / [id number]
== END | disposition home or self-care (01) ==
LOC: PNCL 10:23
PROVIDERS: ATTEND Anesthesiology
DX: M47.817 Spondylosis without myelopathy or radiculopathy, lumbosacral region (principal); M51.16 Intervertebral disc disorders with radiculopathy, lumbar region; Z88.2 Allergy status to sulfonamides
CPT/HCPCS: 64493; 64494; J1040; J3490; Q9965

== ENCOUNTER → 2019-03-31 | Outpatient (CLI) | payer OTHER ==
[~2019-03-31] MED LIST changes: -BUPIVACAINE MPF 0.25% 10 ML VIAL. ONE; +methylPREDNISolone ACETATE 40 MG/ML VIAL. ONE
--- NOTE | 2019-03-31 10:08 | PAIN ---
DATE OF SERVICE: 03/31/2019 PROGRESS NOTE FOR PAIN CLINIC DIAGNOSES: 1. Cervical radiculopathy with cervical degenerative disk disease. 2. Lumbar radiculopathy with lumbar degenerative disk disease and lumbar spondylosis and lumbosacral spondylosis. 3. Myofascial pain. 4. Left sacroiliitis. SUBJECTIVE: The patient is a 59-year-old male who returns for followup status post lumbar facet injections in 12/14/2018. The patient did very well this with near 100% improvement after the injection. He reports his main complaint today is neck and the right upper extremity pain. The patient has had significant difficulty with this in the past, most recently treated in 05/2017. The patient did very well after cervical epidural steroid injection at that time. The pain is returning now in the right upper extremity, worse with use, reaching over his head with his right hand, weightbearing, repetitive motions with the right arm and also driving car. The patient reports it is 10 on a scale of 10 at its worst in the past week, 9 on average, 7 at its least and is 7 today. The patient reports it is aching, shooting, radiating, becoming more constant in the right arm and shoulder as well as radiating into the forearm and into the right hand with tingling and numbness as well. The patient reports it is sharp, burning, shooting and becoming more constant with motion and weightbearing. The patient reports it awakens him from sleep if he lies on his right side. No new motor or sensory deficits or other complaints. PHYSICAL EXAMINATION: VITAL SIGNS: The patient's blood pressure 140/101, pulse 84, respirations 18, temperature 98.3 degrees Fahrenheit. Height is 70 inches, weight is 224 pounds. GENERAL: The patient is awake, alert, oriented, appropriate, very pleasant demeanor. HEENT: Head shows normocephalic, atraumatic. Extraocular movements are intact and symmetrical. Oral cavity, mucous membranes are moist and pink. Dentition is intact. NECK: Shows anterior throat supple without palpable lymphadenopathy noted. Swallow reflex is symmetrical. CHEST: Shows normal on inspection. Breath sounds are clear to auscultation bilaterally. HEART: Shows S1, S2 clear. No murmurs auscultated. ABDOMEN: Soft, nontender, nondistended. No palpable organomegaly is noted. No rebound or guarding demonstrated. BACK: Shows spine grossly in the midline. Cervical paraspinous muscle shows symmetrical on inspection and on palpation shows some moderate tenderness diffusely bilaterally, but only diffusely without radiation. The patient has good rotational motion of cervical spine with some moderate tenderness with extension, but not with forward flexion. Right and left lateral rotations performed past 45 degrees, closer to 90 degrees without significant pain reported. EXTREMITIES: Upper extremities show deep tendon reflexes 2+ in the biceps, triceps tendons. 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 Peripheral pulses are 1+ posterior tibia. No peripheral edema is noted bilaterally. Options were discussed with the patient. The patient's old chart was reviewed as his current medication regimen updated. Current review of systems updated today as well. We will proceed with cervical epidural steroid injection today with fluoroscopic guidance. Risks were again discussed including, but not limited to bleeding, infection, possibility of epidural hematoma, subsequent neurologic compromise, dural puncture, headaches, spinal cord and/or nerve damage, side effects of steroid medication and poor results regarding pain control. The patient understands and wished to proceed. The patient will return to clinic in approximately 2 weeks for followup. She was counseled as to return appointment, activity level and side effects to be aware of. DIAGNOSES: Cervical radiculopathy with cervical degenerative disk disease. PROCEDURE: Cervical epidural steroid injection, translaminar approach at C6-C7 level using C-arm fluoroscopic guidance under sterile prep and drape using local anesthetic. MEDICATION INJECTED: A total of 120 mg Depo-Medrol plus 10 mL of preservative-free normal saline and 2 mL of contrast. CONDITION AT DISCHARGE: Stable. The patient tolerated the procedure well, had no complications. MERCY MARTINEZ MD DR: DOMI/mary JOB#: [id number] / [id number]
== END ==
LOC: PNCL 08:31
PROVIDERS: ATTEND Anesthesiology
DX: M50.123 Cervical disc disorder at C6-C7 level with radiculopathy (principal); M51.16 Intervertebral disc disorders with radiculopathy, lumbar region; M79.18 Myalgia, other site; M46.1 Sacroiliitis, not elsewhere classified; M47.816 Spondylosis without myelopathy or radiculopathy, lumbar region
CPT/HCPCS: 62321; J1030; J1040; Q9965

== ENCOUNTER → 2019-04-14 | Outpatient (CLI) | payer OTHER ==
[~2019-04-14] MED LIST changes: -IOHEXOL 180 MG/ML 10 ML VIAL. ONE; -methylPREDNISolone ACETATE 40 MG/ML VIAL. ONE; -methylPREDNISolone ACETATE 80 MG/ML VIAL. ONE
--- NOTE | 2019-04-14 11:28 | CARD ---
MR#: [id number] Date of Study: 04/14/2019 Ordering Physician: PATRICE ARZOLA, Referring Physician: PATRICE ARZOLA Tech: Sruthi Avila RDCS APPROVED REPORT EXAM: Two-dimensional and M-mode echocardiogram with Doppler and color Doppler. Other Information Quality : Technically LimitedHR: 95bpm Rhythm : NSRTechnically limited study due to body habitus. INDICATION Hypertension/HCVD 2D DIMENSIONS RVDd3.1 (2.9-3.5cm)Left Atrium(2D)3.9 (1.6-4.0cm) IVSd1.2 (0.7-1.1cm)Aortic Root(2D)4.1 (2.0-3.7cm) LVDd4.4 (3.9-5.9cm)LVOT Diameter2.4 (1.8-2.4cm) PWd1.2 (0.7-1.1cm)LVDs3.2 (2.5-4.0cm) FS (%) 28.2 %SV48.2 ml LVEF(%)54.7 (>50%) M-Mode DIMENSIONS Left Atrium(MM)3.75 (2.5-4.0cm)Aortic Root4.30 (2.2-3.7cm) Aortic Valve AoV Peak Judd.228.9cm/sAoV VTI43.4cm AO Peak GR.21.0mmHgLVOT Peak Judd.60.4cm/s AO Mean GR.13mmHgAVA (VMAX)1.21cm2 TONYA (VTI)1.30cm2 Mitral Valve MV E Gmdqgrvk43.9cm/sMV DECEL [id number] MV A Xbbyvzzs62.6cm/sE/A Ratio0.9 Pulmonary Valve PV Peak Rrvzochy563.8cm/s Tricuspid Valve TR P. Yayuaqrl767rm/sRAP VVKOLQDN4uhPq TR Peak Gr.10plAkENOH43jsYm LEFT VENTRICLE The left ventricle is normal size. There is mild concentric left ventricular hypertrophy. The left ve ntricular systolic function is normal and the ejection fraction is within normal range. The Ejection Fraction is 55-60%. There is normal LV segmental wall motion. Transmitral Doppler flow pattern is Gra de I-abnormal relaxation pattern. RIGHT VENTRICLE The right ventricle is normal size. There is normal right ventricular wall thickness. The right ventr icular systolic function is normal. ATRIA The left atrium is mildly dilated. The right atrium size is normal. The interatrial septum is intact with no evidence for an atrial septal defect or patent foramen ovale as noted on 2-D or Doppler imagi ng. AORTIC VALVE The aortic valve is bicuspid. The aortic valve is calcified and displays decreased opening. Doppler a nd Color Flow revealed trace aortic regurgitation. Visually, there is at least moderate stenosis. Harrison culated aortic valve area is 1.3 cm2 with maximum pressure gradient of 21 mmHg and mean pressure grad ient of 13 mmHg. Consider low flow, low gradient . MITRAL VALVE The mitral valve is thickened but opens well. There is no evidence of mitral valve prolapse. There is no mitral valve stenosis. Doppler and Color-flow revealed mild mitral regurgitation. TRICUSPID VALVE The tricuspid valve is normal in structure and function. Doppler and Color Flow revealed trace tricus pid regurgitation. The PA pressure was estimated at 31 mmHg. There is no tricuspid valve prolapse or vegetation. There is no tricuspid valve stenosis. PULMONIC VALVE Doppler and Color Flow revealed trace pulmonic valvular regurgitation. There is no pulmonic valvular stenosis. GREAT VESSELS The aortic root is mildly enlarged at 4.1cm. The ascending aorta is Mildly dilated at 4.0cm. The IVC is normal in size and collapses >50% with inspiration. PERICARDIAL EFFUSION There is no evidence of significant pericardial effusion. Critical Notification Critical Value: No <Conclusion> The left ventricular systolic function is normal and the ejection fraction is within normal range. Th e Ejection Fraction is 55-60%. There is normal LV segmental wall motion. The aortic valve is bicuspid. The aortic valve is calcified and displays decreased opening. Visually, there is at least moderate stenosis. Calculated aortic valve area is 1.3 cm2 with maximum p ressure gradient of 21 mmHg and mean pressure gradient of 13 mmHg. Consider low flow, low gradient . The ascending aorta is mildly dilated at 4.0cm. Signed by : Cal Steiner, Electronically Approved : 04/14/2019 11:28:05
--- NOTE | 2019-04-14 13:33 | RAD ---
MR#: [id number] Date of Study: 04/14/2019 Ordering Physician: PATRICE ARZOLA Referring Physician: ORLIN IRBY Tech: ZACH Melissa APPROVED REPORT Test Type: Exercise Stress Nurse/Tech: Maria D Neely RN Test Indications: Dyspnea on exertion Cardiac History: Hypertension Medications: See Electronic Medical Record Medical History: See Electronic Medical Record Resting ECG: ST with PVC's Resting Heart Rate: 105 bpm Resting Blood Pressure: 134/96mmHg Pretest Chest Pain: No chest pain Nurse/Tech Notes S1,S2 and lungs clear to auscultation. Consent: The procedure was explained to the patient in lay terms. Informed consent was witnessed. Donald eout was entered into [employer]. History and Stress Test performed by ZACH Melissa Stress Symptoms Dyspnea,Fatigue POST EXERCISE Reason for Termination: Reached target heart rate, Fatigue Target HR: Yes Max HR: 160 bpm 100% of Maximum Predicted HR: 159 bpm Exercise duration: 6:12 min:sec, 3 Stage Exercise capacity: 10.0METs Max Blood Pressure: 156/100mmHg Blood Pressure response to exercise: Normal blood pressure response during stress. Heart Rate response to exercise: WNL Chest Pain: No. Arrhythmia: Yes. PVC's INTERPRETATION Stress EKG Conclusion: The resting EKG shows a mild sinus tachycardia and mild nonspecific ST segment changes. The stress EKG shows no significant changes from baseline. No EKG evidence of stressed induced ischemia. Imaging Protocol IMAGE PROTOCOL: Rest Tc-99m/stress Tc-99m 1 day Rest: Stress: Viability: Radiopharm.Tc99m JssaywdneLh04q Sestamibi Dose9.8mCi 33mCi Duration 15min. 10min. Img Date 04/14/2019 04/14/2019 Inj-Img Sxwp37rni. 60min. Post-Injection Exercise: 1 minute Rest Admin Site:IV - Left ForearmAdministrator:ZACH Melissa Stress Admin Site: IV - Left ForearmAdministrator: Thad Griffith, RT (R)(N) STRESS DATA End Diast. Vol.85.0mlAv. Heart Ybar504.0bpm End Syst. Vol.29.0mlCO Index BSA0.0L/min Myocardial Xmjt027.0gEject. Gkvymitl99.0% Stress Rates Pk. Fill Rate5.43EDV/secLVtime Pk. Fill 103.74msec Pk. Empty Rate7.35ESV/secLVtime Pk. Mdkqb131.59msec 1/3 Pk. Fill2.37EDV/sec Stress Scores Regional WT1.00Summed WT8.00 Regional WM0.00Summed WM2.00 LV Perfusion The stress scans showed no significant defects. The rest scans showed no significant defects. Nuclear imaging shows no reversible ischemia or infarct. Wall Motion Normal left ventricular systolic function with no regional wall motion abnormalities and an ejection fraction of 66%. LV Perf. Quant 17 Seg. SSS0.00 17 Seg. SRS0.00 17 Seg. SDS0.00 Stress Defect Extent (% LAD)0.00Rest Defect Extent (% LAD)0.00Rev. Defect Extent (% LAD)0.00 Stress Defect Extent (% LCX) 0.00Rest Defect Extent (% LCX)0.00Rev. Defect Extent (% LCX)0.00 Stress Defect Extent (% RCA)0.00Rest Defect Extent (% RCA)0.00Rev. Defect Extent (% RCA)0.00 Stress Defect Extent (% DARRION)0.00Rest Defect Extent (% DARRION)0.00Rev. Defect Extent (% DARRION)0.00 Conclusion 1. Good exercise tolerance. 2. No chest pain with exertion. 3. No EKG evidence of stressed induced ischemia. 4. Nuclear imaging shows no reversible ischemia or infarct. 5. Normal left ventricular systolic function with an ejection fraction of 66%. 6. Low risk treadmill nuclear stress test. Signed by : Rickey Kwon MD Electronically Approved : 04/14/2019 13:32:50
== END | disposition home or self-care (01) ==
LOC: NM 09:10
PROVIDERS: ATTEND Internal Medicine Cardiovascular Disease
DX: I08.0 Rheumatic disorders of both mitral and aortic valves (principal); R00.0 Tachycardia, unspecified; I49.3 Ventricular premature depolarization; I10 Essential (primary) hypertension; E11.9 Type 2 diabetes mellitus without complications; F17.200 Nicotine dependence, unspecified, uncomplicated; Z95.0 Presence of cardiac pacemaker
CPT/HCPCS: 78452; 93017; 93306; A9500; 96376

== ENCOUNTER → 2019-04-28 | Outpatient (CLI) | payer OTHER ==
[~2019-04-28] MED LIST changes: +IOHEXOL 180 MG/ML 10 ML VIAL. ONE; +methylPREDNISolone ACETATE 40 MG/ML VIAL. ONE; +methylPREDNISolone ACETATE 80 MG/ML VIAL. ONE
--- NOTE | 2019-04-29 00:17 | PAIN ---
DATE OF SERVICE: 04/28/2019 PROGRESS NOTE FOR PAIN CLINIC DIAGNOSES: Cervical radiculopathy with cervical degenerative disk disease. HISTORY OF PRESENT ILLNESS: The patient is a 59-year-old male who returns for followup status post cervical epidural steroid injection x 1 on 2018. The patient did very well with this initially, but reports the pain has returned fairly significantly in the base of the neck and the right upper extremity. The patient reports it is worse with reaching above his head such as reach to a cabinet, and sleeping on his right side, it is awakening him from sleep significantly. The patient reports he has to reposition to get back to sleep and usually is able to do so. The patient reports his pain is a 10 on a scale of 10, worse the past week, 8 on average, 6 at its least and is an 8 today. The patient reports tingling, burning, shooting, radiating constant in the right upper extremity, posterior and anterior aspect of the shoulder, also anterior and posterior biceps, triceps and anterior and posterior forearm involving the hand and all the fingers with numbness and tingling as well. The patient reports no new motor or sensory deficits, no new bowel or bladder incontinence. PHYSICAL EXAMINATION: VITAL SIGNS: The patient's blood pressure is 139/70, pulse 87, respirations are 18, temperature is 97.9 degrees Fahrenheit, height is 70 inches, weighs 223 pounds. GENERAL: The patient is awake, alert, oriented, appropriate, very pleasant demeanor. HEENT: Shows normocephalic, atraumatic. Extraocular movements are intact and symmetrical. Oral cavity: Mucous membranes moist and pink. Dentition is intact. NECK: Shows anterior throat supple without palpable lymphadenopathy noted. Swallow reflex is symmetrical. CHEST: Shows normal on inspection. Breath sounds clear to auscultation bilaterally. HEART: Shows S1, S2 clear. No murmurs auscultated. ABDOMEN: Soft, nontender, nondistended. No palpable organomegaly is noted. No rebound or guarding demonstrated. BACK: Shows spine grossly in the midline. Normal appearing thoracic kyphosis and some minor flattening of lumbar lordotic curvature. Cervical lordotic curvature is maintained. Cervical paraspinous muscle shows symmetrical on inspection. On palpation shows some moderate tenderness diffusely, but only diffusely without radiation. The patient has good rotational motion of the cervical spine, both laterally as well as extension and flexion without significant increase in pain. EXTREMITIES: Upper extremities show deep tendon reflexes 2+ in the biceps, triceps tendons. Motor exam is strong with 5/5 collection specialist strength, bicep and tricep flexion and symmetrical. Peripheral pulses are 2+ radial distribution. No peripheral edema is noted. Options were discussed with the patient. The patient's old chart was reviewed as his current medication regimen updated. Current review of systems updated today as well. We will proceed with a second in series of cervical epidural steroid injection today with fluoroscopic guidance. Risks were again discussed including but not limited to bleeding, infection, possibility of epidural hematoma and subsequent neurologic compromise, dural puncture, headaches, spinal cord and/or nerve damage, side effects of steroid medication and poor results regarding pain control. The patient understands and wished to proceed. The patient will return to clinic in approximately 2 weeks for followup, was counseled on return appointment, activity level and side effects as be aware of. DIAGNOSES: Cervical radiculopathy with cervical degenerative disk disease. PROCEDURE: Cervical epidural steroid injection, translaminar approach at C6-C7 level using C-arm fluoroscopic guidance under sterile prep and drape using local anesthetic. MEDICATION INJECTED: A total of 120 mg Depo-Medrol plus 5 mL of preservative-free normal saline and 2 mL of contrast. CONDITION AT DISCHARGE: Stable. The patient tolerated the procedure well, had no complications. MERCY MARTINEZ MD DR: DOMI/mary JOB#: [id number] / [id number]
== END ==
LOC: PNCL 10:15
PROVIDERS: ATTEND Anesthesiology
DX: M50.123 Cervical disc disorder at C6-C7 level with radiculopathy (principal); Z79.899 Other long term (current) drug therapy
CPT/HCPCS: 62321; J1030; J1040; Q9965

== ENCOUNTER → 2019-05-12 | Outpatient (CLI) | payer OTHER ==
[~2019-05-12] MED LIST changes: -IOHEXOL 180 MG/ML 10 ML VIAL. ONE; -methylPREDNISolone ACETATE 40 MG/ML VIAL. ONE; -methylPREDNISolone ACETATE 80 MG/ML VIAL. ONE
--- NOTE | 2019-05-12 15:56 | RAD ---
PQRS Compliance statement: One or more of the following individualized dose reduction techniques were utilized for this examination: 1. Automated exposure control. 2. Adjustment of the mA and/or kV according to patient size. 3. Use of iterative reconstruction technique. Indication:Radiculopathy. TECHNIQUE: CT of the cervical spine without IV contrast with multiplanar reformats. COMPARISON:None FINDINGS: There is straightening of the cervical spine. This could be due to muscle spasm or positioning. 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 Atlantoaxial joint interval is preserved. No compression deformity. Facet joints are in normal anatomic alignment. No acute fractures. Multilevel intervertebral disc space narrowing seen with endplate irregularity and moderate size anterior bridging osteophytes. Segmental analysis: C2-C4: Mild central disc protrusion indenting anterior thecal sac. Mild bilateral facet arthropathy. Moderate right neuroforamina narrowing. C4-C5: Very mild circumferential disc bulge flattening intrathecal sac. Mild bilateral facet arthropathy. Moderate to severe right and mild left neuroforamina narrowing. C5-C6: Very mild central disc protrusion indenting anterior thecal sac. Moderate left and mild right facet arthropathy. Severe left and mild right neuroforamina narrowing. C6-C7: Central disc protrusion indenting anterior thecal sac. Mild bilateral facet arthropathy. Severe bilateral neuroforamina narrowing. Visualized noncontrast sections through the neck are within normal limits. Clear lung apices. IMPRESSION: Multilevel degenerative disc disease with associated facet arthropathy causing varying amount of neuroforaminal narrowing as described above. Electronically signed by: Boone Stewart DO (05/12/2019 3:53 PM) [facility]
== END ==
LOC: CT 15:01
PROVIDERS: ATTEND Anesthesiology
DX: M50.123 Cervical disc disorder at C6-C7 level with radiculopathy (principal); M48.02 Spinal stenosis, cervical region
CPT/HCPCS: 72125

== ENCOUNTER → 2019-06-16 | Outpatient (CLI) | payer OTHER ==
--- NOTE | 2019-06-16 10:02 | RAD ---
MRI Cervical Spine Without Contrast History: Neck pain, worsening right arm radiculopathy Technique: Multiplanar, multi sequential noncontrast MR imaging was performed of the cervical spine. Comparison: CT cervical spine exam May 12, 2019; MRI cervical spine exam March 28, 2017 Findings: There is some motion degradation. Cervical vertebral body stature is overall maintained. There is again mild reversal of the lordotic curvature centered near C5. Cervical cord caliber is within normal limits without defined or expansile signal abnormality, limited evaluation for subtle signal change due to motion. There is no significant marrow edema. There is some increased T2 and STIR signal of the visualized catrina overall increased compared with 2017 exam. There is again moderate degenerative disc disease C6-7 and to a lesser degree at C5-6, mild disc desiccation at other levels. There is mild mucosal thickening of the visualized bilateral maxillary sinuses. C2-C3: There is again developmental interbody fusion and fusion of posterior elements. Neural foramina and spinal canal are adequate. C3-C4: There is facet degenerative change. Neural foramina and spinal canal are adequate. C4-C5: There is facet degenerative change. Neural foramina and spinal canal are adequate. There is negligible disc osteophyte complex. C5-C6: There is again minimal disc osteophyte complex and bulge. Central canal is narrowed to about 8 to 9 mm. There is bilateral uncovertebral degenerative change greater on the left. There is bilateral facet degenerative change. There is fairly severe narrowing of the left neural foramen, right neural foramen adequate. C6-C7: There is minimal disc osteophyte complex. Central canal is borderline about 10 mm, minimal narrowing the right lateral recess. There is uncovertebral degenerative change bilaterally. There is moderate to severe neural foramina compromise bilaterally somewhat greater on the right. C7-T1: Spinal canal is adequate. There is uncovertebral degenerative change and facet degenerative change bilaterally. There is moderate to severe left and [id number] right neural foramina compromise. T1-2: There is facet and uncovertebral degenerative change, contributing to at least mild and [id number] left neural foramina compromise. Impression: 1. Multilevel facet and uncovertebral degenerative change contributes to multilevel neural foramina compromise as stated, more significant narrowing on the left at C5-C6 and C7-T1 and bilaterally at C6-7, to lesser degree on the right at C7-T1 and on the left at T1-2. 2. There is again developmental interbody fusion at C2-3, also fusion of posterior elements. 3. There is again degenerative disc disease greatest at C6-7 and to lesser degree at C4-C5. 4. There is some increased T2 and STIR signal of the visualized catrina, again likely component of lacunar infarcts in combination with other nonspecific signal change. Findings could be due to sequela of chronic microvascular ischemic disease. Electronically signed by: Shun Riley MD (06/16/2019 9:58 AM) [id number]
== END | disposition home or self-care (01) ==
LOC: MRI 07:46
PROVIDERS: ATTEND Neurological Surgery
DX: M48.02 Spinal stenosis, cervical region (principal); M54.12 Radiculopathy, cervical region; M43.22 Fusion of spine, cervical region; M50.30 Other cervical disc degeneration, unspecified cervical region; M25.78 Osteophyte, vertebrae
CPT/HCPCS: 72141

== ENCOUNTER → 2020-01-26 | Outpatient (CLI) | payer OTHER ==
[~2020-01-26] MED LIST changes: +BUPIVACAINE MPF 0.25% 10 ML VIAL. ONE; +methylPREDNISolone ACETATE 40 MG/ML VIAL. ONE
--- NOTE | 2020-01-26 14:23 | PAIN ---
DATE OF SERVICE: 01/26/2020 PROGRESS NOTE FOR PAIN CLINIC DIAGNOSES: 1. Cervical radiculopathy with cervical degenerative disk disease. 2. Lumbar radiculopathy with lumbar herniated disk and lumbar spondylosis. 3. Myofascial pain. 4. Left sacroiliitis. HISTORY OF PRESENT ILLNESS: The patient is a 60-year-old male who returns for followup status post cervical epidural steroid injections x 2, last seen in 04/2019. The patient did very well with about 80% improvement and also did well in the past with lumbar facet injections, sacroiliac injections, myofascial injections as well as epidural injections in the lumbar distribution. The patient reports his pain now is different, much worse with getting up from a seated position and when he is first standing and then walking in the back bilaterally in the middle back and mid upper back and in the low back bilaterally, worse with again standing, walking, changing positions, worse with extension of the lumbar spine, also some pain with forward flexion, right and left lateral rotation is painful as well. The patient reports it is better with sitting or lying down, does not awaken him from sleep at night, but as soon as he gets up, it takes a few minutes once he is standing for the pain to subside enough for him to walk. The patient reports no loss of motor function, no new bowel or bladder incontinence. The patient reports pain is a 10 on a scale of 10 at its worst, on average 9 and least is a 9 and is a 9 today. The patient reports it is aching, sharp, tight, constant across the back and the mid back, upper back and into the hips posteriorly, but without radiation to lower extremities at this time. PHYSICAL EXAMINATION: VITAL SIGNS: The patient's blood pressure 125/80, pulse 50, respirations 18, temperature 98.6 degrees Fahrenheit, height is 70 inches, weight is 235 pounds. GENERAL: The patient is awake, alert, oriented, appropriate, very pleasant demeanor. HEENT: Shows normocephalic, atraumatic. Extraocular movements are intact and symmetrical. Oral cavity shows mucous membranes are moist and pink. Dentition is intact. NECK: Shows anterior throat supple without palpable lymphadenopathy noted. Swallow reflex symmetrical. CHEST: Shows normal on inspection. Breath sounds are clear bilaterally. HEART: Shows S1, S2 clear. ABDOMEN: Soft, nontender, nondistended. BACK: Shows spine grossly in the midline. Normal appearing thoracic kyphosis and minor flattening of lumbar lordotic curvature. Lumbar paraspinous muscle shows symmetrical on inspection, on palpation shows some moderate tenderness diffusely bilaterally going diffusely without significant radiation. The patient does have some very firm rope-like musculature throughout the lower thoracic and upper, middle and lower distribution of the lumbar paraspinous musculature is very firm rope-like musculature, very tender consistent with trigger point areas of musculature, also into the superior medial gluteus on the left greater than the right, but present bilaterally with very firm rope-like musculature, very tender with palpation, but without radiation. The patient shows good rotational motion but significant tenderness with right and left lateral rotation greater than 10 degrees, extension greater than 10 degrees, and moderate tenderness, forward flexion shows moderate tenderness to 45 degrees. EXTREMITIES: The patient's lower extremities show deep tendon reflexes at 2+ in the patellar, 1+ tendo-calcaneus tendons. Motor exam is strong with 5/5 dorsiflexion, extension, quadriceps and hamstring flexion symmetrical. Peripheral pulses are 1+ posterior tibia. No peripheral edema is noted. Options were discussed with the patient. The patient's old chart was reviewed as his current medication regimen updated. Current review of systems updated today as well. We will proceed with trigger point injections of the identified musculature. Risks were discussed including but not limited to bleeding, infection, possibility of intravascular injection sequelae, pneumothorax, side effects of steroid medication as well as spread of local anesthetic and numbness and poor results regarding pain control. The patient understands and wished to proceed. The patient will return to clinic in approximately 2 weeks for followup. He was counseled on return appointment, activity level and side effects to be aware of. The patient was also given prescription for hydrocodone 5 mg, #60, no refills with instructions, side effects to be aware of with the medication. The patient will follow up in approximately 2 weeks as scheduled. DIAGNOSIS: Myofascial pain. PROCEDURE: Trigger point injections, bilateral thoracic paraspinous musculature, bilateral lumbar paraspinous musculature, bilateral gluteus musculature under sterile prep and drape using local anesthetic. MEDICATION INJECTED: A total of 9 mL of 0.25% bupivacaine, 40 mg total of Depo-Medrol after negative aspiration at each injection site. CONDITION AT DISCHARGE: Stable. The patient tolerated the procedure well, had no complications. MERCY MARTINEZ MD DR: DOMI/mary JOB#: [id number] / [id number]
== END | disposition home or self-care (01) ==
LOC: PNCL 07:27
PROVIDERS: ATTEND Anesthesiology
DX: M79.18 Myalgia, other site (principal); M50.10 Cervical disc disorder with radiculopathy, unspecified cervical region; M46.1 Sacroiliitis, not elsewhere classified; M51.16 Intervertebral disc disorders with radiculopathy, lumbar region; M47.26 Other spondylosis with radiculopathy, lumbar region; Z98.890 Other specified postprocedural states; Z88.1 Allergy status to other antibiotic agents
CPT/HCPCS: 20553; J1030; J3490

== ENCOUNTER → 2020-03-22 | Outpatient (CLI) | payer OTHER ==
[~2020-03-22] MED LIST changes: +IOHEXOL 180 MG/ML 10 ML VIAL. ONE; -ZOLP12.54 PO; +ZOLP12.56 PO; -methylPREDNISolone ACETATE 40 MG/ML VIAL. ONE; +methylPREDNISolone ACETATE 80 MG/ML VIAL. ONE
--- NOTE | 2020-03-22 12:55 | PAIN ---
DATE OF SERVICE: 03/22/2020 PROGRESS NOTE FOR PAIN CLINIC DIAGNOSES: 1. Cervical radiculopathy with cervical degenerative disk disease. 2. Lumbar radiculopathy with lumbar herniated disk, lumbar and lumbosacral spondylosis. 3. Myofascial pain. 4. Left sacroiliitis. HISTORY OF PRESENT ILLNESS: The patient is a 60-year-old male who returns for followup status post previous trigger point injections, last seen in 01/26/2020, patient did very well with these with about 100% improvement. The patient reports that his pain began to return in his low back; however, on the right side. He has been doing a lot of the car trips recently, his father has been very ill and recently . He has been traveling to and from [place], [place] frequently over the last few months and the patient reports that the pain is beginning to get worse over the past 3-4 weeks in the right side of the low back, not radiating into the lower extremities, but in the low back itself. The patient reports it is a 10 on a scale of 10 at its worse over the past week, 8 on average, 5 at its least and is an 8 today. The patient reports it is sharp, stabbing at times, can be constant and aching with sitting, has been waking him from sleep about every 4-6 hours. The patient reports no loss of motor function, again no radiation into the lower extremities, but significant pain in the right side of back itself, left side is essentially not painful. The patient also has difficulty with rotation to the right side and also with extension of the lumbar spine with axial loading of the low back and lumbar facets on the right side as he has had previously. He has done very well with facet joint injections in the past and returns today with these complaints. PHYSICAL EXAMINATION: VITAL SIGNS: The patient's blood pressure 142/94, pulse 90, respirations 18, temperature is 99.4 degrees Fahrenheit, height is 70 inches, weight is 235 pounds. GENERAL: The patient is awake, alert, oriented, appropriate, very pleasant demeanor. HEENT: Shows normocephalic, atraumatic. Extraocular movements are intact and symmetrical. Oral cavity shows mucous membranes moist and pink. Dentition is intact. NECK: Shows anterior throat supple without palpable lymphadenopathy noted. Swallow reflex symmetrical. CHEST: Shows normal on inspection. Breath sounds are clear bilaterally. HEART: Shows S1, S2 clear. No murmurs auscultated. ABDOMEN: Soft, nontender, nondistended. No palpable organomegaly is noted. There is no rebound or guarding demonstrated. BACK: Shows spine grossly in the midline. Normal appearing thoracic kyphosis and minor flattening of lumbar lordotic curvature. Lumbar paraspinous muscle shows symmetrical on inspection, on palpation shows some moderate tenderness diffusely, more on the right than the left in the paraspinous musculature, but without asymmetry, no trigger points. No atrophy or hypertrophy of the musculature itself. No tenderness over the spinous processes, sacrum or sacroiliac regions. EXTREMITIES: Lower extremities show deep tendon reflexes 2+ in the patellar, 1+ tendo-calcaneus tendons are equal. Motor exam is strong with 5/5 dorsiflexion, extension, quadriceps and hamstring flexion symmetrical. Peripheral pulses are 1+ posterior tibia. No peripheral edema is noted bilaterally. Options were discussed with the patient. The patient's old chart today was reviewed as his current medication regimen updated. Current review of systems updated today as well. We will proceed with right-sided L4-L5 and L5-S1 facet joint injections today with fluoroscopic guidance. Risks were again discussed including, but not limited to bleeding, infection, possibility of epidural hematoma, subsequent neurological compromise, dural puncture, headaches, spinal cord and/or nerve damage, side effects of steroid medication and poor results regarding pain control. The patient understands and wished to proceed. The patient will return to clinic in approximately 2 weeks or as necessary, would like to follow up on a p.r.n. basis at this time. The patient was also given refill prescription for hydrocodone with release to fill this early as the patient had been in a lot of pain lately, I have given him a prescription for 60 tablets of 5 mg hydrocodone on 03/14/2020 and informed him that also this would not be refilled with less than a month from today's date if necessary, if that. The patient understands and agrees. The patient will follow up as scheduled. DIAGNOSES: Lumbar and lumbosacral spondylosis. PROCEDURE: Right-sided L4-L5 and L5-S1 facet joint injections using C-arm fluoroscopic guidance under sterile prep and drape using local anesthetic. MEDICATION INJECTED: A total of 80 mg Depo-Medrol plus total of 2 mL of 0.25% bupivacaine and 1 mL of contrast, 0.5 mL at each level with good spread and no washout. CONDITION AT DISCHARGE: Stable. The patient tolerated procedure well, had no complications. MERCY MARTINEZ MD DR: DOMI/mary JOB#: [id number] / [id number]
== END ==
LOC: PNCL 11:44
PROVIDERS: ATTEND Anesthesiology
DX: M47.817 Spondylosis without myelopathy or radiculopathy, lumbosacral region (principal); M46.1 Sacroiliitis, not elsewhere classified; M79.18 Myalgia, other site; M54.16 Radiculopathy, lumbar region
CPT/HCPCS: 64493; 64494; J1040; J3490; Q9965

== ENCOUNTER → 2020-06-08 | Outpatient (CLI) | payer OTHER ==
[~2020-06-08] MED LIST changes: +ALPR1TAB2 PO; -BUPIVACAINE MPF 0.25% 10 ML VIAL. ONE; +BUPIVACAINE MPF 0.25% 30 ML VIAL. ONE; +IRBE75TA16 PO; +methylPREDNISolone ACETATE 40 MG/ML VIAL. ONE
--- NOTE | 2020-06-08 10:43 | PDOC ---
Progress Note - Pain Clinic Date of Service: DOS: DATE: 06/08/20 TIME: 10:39 Diagnosis: Dx: Lumbar and lumbosacral spondylosis with lumbar herniated disc Cervical radiculopathy with cervical degenerative disc disease Myofascial pain Left sacroiliitis History or Present Illness: HPI: 60-year-old male returns follow-up status post bilateral and right-sided facet joint injections in the past with good results also medication management with hydrocodone patient reports he doing very well with each of these the injections were helpful about 3035% improvement in March of this year patient had a lot of activity going on as the father had recently but do not of moving getting his house ready to sell and has come down to some extent now the pain is returning however it bilaterally in the low back worse with standing walking changing positions better with sitting or laying down but is waking from sleep about every 7 hours patient reports is a 9 on scale 10 is worse over the past week 7-8 on average 5 its least is a 5 today patient reports is aching cramping constant in the low back again worse with activity. Patient reports no new motor or sensory deficits no bowel or bladder incontinence or other complaints. Physical Exam: VS: Blood pressure 146/102 pulse 91 respiration 16 temperature 98.1 F height is 70 inches weight is 237 pounds PE: PHYSICAL EXAMINATION: GENERAL: The patient is awake, alert, oriented, appropriate, very pleasant demeanor HEENT: Shows normocephalic, atraumatic. Extraocular movements are intact and symmetrical. Oral cavity: Mucous membranes moist and pink. NECK: Shows anterior throat supple without palpable lymphadenopathy noted. Swallow reflex symmetrical. CHEST: Shows normal on inspection. Breath sounds are clear bilaterally, no rales rhonchi or wheezes auscultated. HEART: Shows S1, S2 clear. No murmurs auscultated. ABDOMEN: Soft, nontender, nondistended. No palpable organomegaly is noted. No rebound or guarding demonstrated. BACK: Shows spine grossly in the midline. Normal-appearing cervical lordotic curvature. There is slightly increased thoracic kyphosis, some minor flattening of the lumbar lordotic curvature. Lumbar paraspinous muscles show symmetrical on inspection, on palpation shows some moderate tenderness diffusely throughout the upper, middle and lower distribution of the paraspinous muscles bilaterally and also into the lower thoracic paraspinous musculature, firm and tender, but without specific trigger points, without radiation of pain. The patient has good rotational motion of the lumbar spine, both laterally as well as extension and flexion with moderate tenderness with extension especially greater than 10 degrees bilaterally also with right and left lateral rotation to a moderate extent but decreased with forward flexion. No tenderness over the spinous processes. EXTREMITIES: Lower extremities show deep tendon reflexes 2+ in the patellar and tendo calcaneus tendons. Motor exam is 5 on a scale of 5 with right dorsiflexion, extension, quadriceps and hamstring flexion and 5/5 on the left. Peripheral pulses are 1+ posterior tibial. No peripheral edema is noted bilaterally. Lower extremities are warm and dry to touch, equal in color and appearance. SKIN: Shows warm and dry, good turgor. No edema. No sores, rashes or bruising throughout. Procedure: Procedure: Options were discussed with the patient. Patient's old chart was reviewed his his current medication regimen updated current review of systems updated today as well. We will proceed with bilateral L4-5 and L5-S1 facet joint injections today with fluoroscopic guidance. Risks were discussed including but not limited to: Bleeding, infection, possibility of epidural hematoma and subsequent neurological compromise, dural puncture, headaches, spinal cord and/or nerve damage, side effects of steroid medication, and poor results regarding pain control. Patient understands wished to proceed. Patient return to clinic in roughly 2 weeks for follow-up was counseled as return appointment activity level and side effects be aware. Patient also be given refill prescription for hydrocodone 5 mg with instructions side effects beware patient is had appropriate K tracts reporting any urinalyses to date we will have a UA done today as routine screening as well. Medication Injected: Med Injected: Under sterile prep and drape using C-arm fluoroscopic guidance AP and lateral and oblique views, bilateral L4-5 and L5-S1 facet joint injections, medications injected: 120 mg Depo-Medrol +4 cc 0.25% bupivacaine +2 cc contrast. Condition at discharge stable patient tolerated the procedure well and no complications. Condition at Discharge: Condition at Discharge: Condition at discharge stable patient tolerated procedure well had no complications. MERCY MARTINEZ MD Jun 08, 2020 10:43
== END | disposition home or self-care (01) ==
LOC: PNCL 09:23
PROVIDERS: ATTEND Anesthesiology
DX: M47.816 Spondylosis without myelopathy or radiculopathy, lumbar region (principal); M47.817 Spondylosis without myelopathy or radiculopathy, lumbosacral region; M50.10 Cervical disc disorder with radiculopathy, unspecified cervical region; M51.26 Other intervertebral disc displacement, lumbar region; M46.1 Sacroiliitis, not elsewhere classified; I10 Essential (primary) hypertension; E11.9 Type 2 diabetes mellitus without complications; M79.18 Myalgia, other site; Z88.2 Allergy status to sulfonamides; Z79.82 Long term (current) use of aspirin; Z79.899 Other long term (current) drug therapy; Z98.890 Other specified postprocedural states
CPT/HCPCS: 64635; 64636; J1030; J1040; J3490; Q9965

== ENCOUNTER → 2020-07-24 | Outpatient (CLI) | payer OTHER ==
[~2020-07-24] MED LIST changes: -BUPIVACAINE MPF 0.25% 30 ML VIAL. ONE
--- NOTE | 2020-07-24 09:43 | PDOC ---
Progress Note - Pain Clinic Date of Service: DOS: DATE: 07/24/20 TIME: 09:40 Diagnosis: Dx: Lumbar radiculopathy with lumbar degenerative disc disease lumbar herniated disc and lumbar spondylosis Cervical radiculopathy with cervical degenerative disease Myofascial pain Left sacroiliitis History or Present Illness: HPI: 60-year-old male returns follow-up status post lumbar facet injections June 08, 2020 patient did very well with these now reports that after increasing his activity and doing some yard work over the past week or so has had significant pain in the low back radiating to the right lower extremity now which is new and different into the posterior gluteus posterior thigh posterior lateral thigh lateral anterior thigh anterior medial thigh into the lower leg and calf patient reports is aching sharp shooting stabbing coming more constant difficult to walk secondary to the pain is favoring right lower extremity significantly. 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 Patient ports no loss of motor function no bowel or bladder incontinence Physical Exam: VS: Pressure is 134/84 pulse 101 respirations 18 temp is 98.0 F height is 70 inches weight is 235 pounds PE: PHYSICAL EXAMINATION: GENERAL: The patient is awake, alert, oriented, appropriate, very pleasant demeanor HEENT: Shows normocephalic, atraumatic. Extraocular movements are intact and symmetrical. Oral cavity: Mucous membranes moist and pink. Dentition is intact. NECK: Shows anterior throat supple without palpable lymphadenopathy noted. Swallow reflex symmetrical. CHEST: Shows normal on inspection. Breath sounds are clear bilaterally, no rales rhonchi or wheezes. HEART: Shows S1, S2 clear. No murmurs auscultated. ABDOMEN: Soft, nontender, nondistended, obese. No palpable organomegaly is noted. No rebound or guarding demonstrated. BACK: Shows spine grossly in the midline. Normal-appearing cervical lordotic curvature. There is slightly increased thoracic kyphosis, some minor flattening of the lumbar lordotic curvature. Lumbar paraspinous muscles show symmetrical on inspection, on palpation shows some moderate tenderness diffusely throughout the upper, middle and lower distribution of the paraspinous muscles without specific trigger points, without radiation of pain. The patient has good rotational motion of the lumbar spine, both laterally as well as extension and flexion without significant difficulty. No tenderness over the spinous processes, sacrum or sacroiliac regions. EXTREMITIES: Lower extremities show deep tendon reflexes 2+ in the patellar and tendo calcaneus tendons. Motor exam is 4 on a scale of 5 with right dorsiflexion, extension, quadriceps and hamstring flexion and 5/5 on the left. Peripheral pulses are 1+ posterior tibial. No peripheral edema is noted bilaterally. Lower extremities are warm and dry to touch, equal in color and appearance. SKIN: Shows warm and dry, good turgor. No edema. No sores, rashes or bruising throughout. Procedure: Procedure: Options were discussed with the patient. Patient will chart reviews his current medication regimen updated current review of systems updated today as well. Proceed with a lumbar epidural steroid injection today with fluoroscopic guidance. Risks were discussed including but not limited to: Bleeding, infection, possibility of epidural hematoma and subsequent neurological compromise, dural puncture, headaches, spinal cord and/or nerve damage, side eff ects of steroid medication, and poor results regarding pain control. Patient understands wished to proceed. Patient will return to clinic in approximate 2 weeks for follow-up, was counseled as to return appointment activity level and side effects to be aware of. Medication Injected: Med Injected: Procedure is lumbar epidural steroid injection under local anesthetic using sterile prep and drape at the L4-5 level using C-arm fluoroscopic guidance in both AP and lateral views medications injected is 120 mg Depo-Medrol + 10 mL preservative-free normal saline and 2 mL contrast- condition at discharge is stable patient tolerated procedure well had no complications. Condition at Discharge: Condition at Discharge: Condition at discharge is stable, patient tolerated procedure well and had no complications. MERCY MARTINEZ MD Jul 24, 2020 09:43
== END | disposition home or self-care (01) ==
LOC: PNCL 08:59
PROVIDERS: ATTEND Anesthesiology
DX: M51.16 Intervertebral disc disorders with radiculopathy, lumbar region (principal); M47.26 Other spondylosis with radiculopathy, lumbar region; M50.10 Cervical disc disorder with radiculopathy, unspecified cervical region; M46.1 Sacroiliitis, not elsewhere classified; M79.18 Myalgia, other site; Z79.82 Long term (current) use of aspirin; Z79.899 Other long term (current) drug therapy; Z88.2 Allergy status to sulfonamides
CPT/HCPCS: 62323; J1030; J1040; Q9965

== ENCOUNTER → 2021-03-15 | Outpatient (CLI) | payer OTHER ==
[~2021-03-15] MED LIST changes: -IOHEXOL 180 MG/ML 10 ML VIAL. ONE; -methylPREDNISolone ACETATE 40 MG/ML VIAL. ONE; -methylPREDNISolone ACETATE 80 MG/ML VIAL. ONE
--- NOTE | 2021-03-19 11:21 | CARD ---
EXAM: Two-dimensional and M-mode echocardiogram with Doppler and color Doppler. Other Information Quality : Average HR: 96bpm INDICATION Hypertension/HCVD 2D DIMENSIONS RVDd 3.6 (2.9-3.5cm) Left Atrium(2D) 2.8 (1.6-4.0cm) IVSd 1.2 (0.7-1.1cm) Aortic Root(2D) 3.7 (2.0-3.7cm) LVDd 4.5 (3.9-5.9cm) LVOT Diameter 2.3 (1.8-2.4cm) PWd 1.1 (0.7-1.1cm) LVDs 3.2 (2.5-4.0cm) FS (%) 28.1 % SV 49.7 ml LVEF(%) 54.5 (>50%) Aortic Valve AoV Peak Judd. 225.6cm/s AoV VTI 41.8cm AO Peak GR. 20.4mmHg LVOT Peak Judd. 67.7cm/s LVOT VTI 13.95cm AO Mean GR. 13mmHg TONYA (VMAX) 1.23cm2 TONYA (VTI) 1.37cm2 Mitral Valve MV E Velocity 31.0cm/s MV DECEL TIME 146ms MV A Velocity 72.8cm/s MV PHT 42ms E/A Ratio 0.4 MVA (PHT) 5.20cm2 TDI E/Lateral E' 3.9 E/Medial E' 2.8 Pulmonary Valve PV Peak Velocity 97.8cm/s PV Peak Grad. 4mmHg Tricuspid Valve TR P. Velocity 250cm/s RAP ESTIMATE 3mmHg TR Peak Gr. 30mmHg RVSP 33mmHg LEFT VENTRICLE The left ventricle is normal size. There is mild to moderate concentric left ventricular hypertrophy. The left ventricular systolic function is normal and the ejection fraction is within normal range. The Ejection Fraction is 50-55%. There is normal LV segmental wall motion. Transmitral Doppler flow pattern is Grade I-abnormal relaxation pattern. RIGHT VENTRICLE The right ventricle is normal size. There is normal right ventricular wall thickness. The right ventricular systolic function is normal. ATRIA The left atrium size is normal. The right atrium size is normal. The interatrial septum is intact with no evidence for an atrial septal defect or patent foramen ovale as noted on 2-D or Doppler imaging. AORTIC VALVE The aortic valve is probably bicuspid with heavy calcification. Doppler and Color Flow revealed trace aortic regurgitation. Calculated aortic valve area is 1.14 cm2 with maximum pressure gradient of 23 mmHg and mean pressure gradient of 15 mmHg. MITRAL VALVE The mitral valve is normal in structure and function. There is no evidence of mitral valve prolapse. There is no mitral valve stenosis. Doppler and Color-flow revealed trace mitral regurgitation. TRICUSPID VALVE The tricuspid valve is normal in structure and function. Doppler and Color Flow revealed trace tricuspid regurgitation with an estimated PAP of 33 mmHg. There is no tricuspid valve stenosis. PULMONIC VALVE The pulmonic valve is not well visualized. Doppler and Color Flow revealed mild to moderate pulmonic valvular regurgitation. There is no pulmonic valvular stenosis. GREAT VESSELS The aortic root is normal in size. The ascending aorta is normal in size. The IVC is normal in size and collapses >50% with inspiration. PERICARDIAL EFFUSION There is no evidence of significant pericardial effusion. Critical Notification Critical Value: No <Conclusion> The left ventricular systolic function is normal and the ejection fraction is within normal range. The Ejection Fraction is 50-55%. There is normal LV segmental wall motion. The aortic valve is probably bicuspid with heavy calcification. Calculated aortic valve area is 1.14 cm2 with maximum pressure gradient of 23 mmHg and mean pressure gradient of 15 mmHg. Doppler and Color Flow revealed mild to moderate pulmonic valvular regurgitation. Signed by : Cal Steiner, Electronically Approved : 03/16/2021 08:12:00 JACQUELINE
== END ==
LOC: ECHO 12:30
PROVIDERS: ATTEND Internal Medicine Cardiovascular Disease
DX: I37.1 Nonrheumatic pulmonary valve insufficiency (principal); I11.9 Hypertensive heart disease without heart failure
CPT/HCPCS: 93306; 93307